=== PATIENT | female | born 1965 | race Caucasian/White ===

== ENCOUNTER 2021-07-11 14:24 | Outpatient (CLI) | payer BC, SELFPAY ==
--- NOTE | ~2021-07-11 | CT_ITS ---
EXAMINATION: CT sinus wo con DATE: 07/11/2021 14:48 INDICATION: Loss of smell, periorbital crash, rhinorrhea, congestion, cough. History of asthma. TECHNIQUE: Computed tomography (CT) of the paranasal sinuses was performed without contrast. Iterativ e reconstruction technique was employed. Exam dose: 239.31 mGy-cm total exam DLP. COMPARISON: 04/20/2012 skull FINDINGS: There is minimal leftward bowing of the nasal septum. There is opacified intralamellar cell of the right middle nasal turbinate. There is opacification of the maxillary ostium, infundibulum and ethmoid bulla bilaterally. There is prominent soft tissue thickening within both frontal sinuses, nearly opacifying the left fro ntal sinus. There is patchy prominent soft tissue opacification of the ethmoid air cells bilaterally. There is moderate right and mild left maxillary sinus mucoperiosteal thickening. There is minimal sof t tissue thickening of the sphenoid sinuses. The mastoid air cells are normally developed and aerated bilaterally. IMPRESSION: Opacification of both ostiomeatal units Prominent soft tissue opacification of frontal sinuses, left greater than right Prominent bilateral patchy opacification of ethmoid air cells Moderate right and mild left maxillary mucoperiosteal thickening Minimal bilateral sphenoid nuchal periosteal thickening Reviewed, dictated and finalized at [facility]. Reviewed, dictated and finalized at location [facility]. 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
== END 2021-07-11 14:25 ==
PROVIDERS: PCP Family Medicine; Visit Provider Family Medicine
DX: Z91.09 Other allergy status, other than to drugs and biological substances (principal)
CPT/HCPCS: 70486

== ENCOUNTER 2021-09-21 02:39 | Day surgery (SDC) | payer BC, SELFPAY ==
[2021-09-14 15:30] VITALS: BMI 49.5
--- NOTE | 2021-09-14 15:51 | PC.NURSE ---
Report to the Outpatient Waiting Room, entrance under the green pavilion located off [facility], at time 0730 on date 09/21/21. OR Time: 0930. - You and your visitor will be asked a series of questions to screen for COVID 19 for your protection. - A mask is required within the hospital. One visitor will be allowed to accompany the patient into the hospital. Patients visitor will be instructed to remain with patient at all times or leave the building. We will allow the visitor to come back to the postoperative area when patient is ready. Preoperative COVID Testing Requirements: No COVID Test needed if: (proof is required; if not received patient will have Rapid Test prior to entry) - Patient has received COVID Vaccine at least 14 days prior to procedure date or - Patient has positive COVID test result within last 90 days of surgery date. COVID Test needed if above criteria is not met Patients may have clear liquids (water, carbonated beverages, clear teas, apple juice) until 3 hours prior to surgery with a maximum of 20 ounces. - No food from midnight until time of surgery Take the following medications with a SIP of water the morning of surgery: INHALERS, LEVOTHYROXINE, LIOTHYRONINE Medications to discontinue per physician: BABY ASPIRIN Date to take last dose: PER DR. MOCTEZUMA Please no make-up, nail khmer, hairspray, perfume, deodorant, or body powder the day of surgery. No jewelry (including any body piercings) or valuables the day of surgery, leave them at home. Please take a shower or bath the night before, or the morning of, surgery with an antibacterial soap. Wear comfortable, loose fitting clothing. - Jewelry must be removed prior to entering the operating room. Rings and piercings that are not removed may be cut off. - The hospital will not accept responsibility for valuables. - Please leave all valuables, including medications, at home the day of surgery. If you are going home after surgery, a licensed equipment driver must drive you home. - NO public transportation without another adult. - We recommend that an adult stay with you for 24 hours following discharge. - We also recommend that you do not drive, make important decision, drink alcoholic beverages, or take any drugs that were not prescribed by your health care provider for at least 24 hours after your discharge time. Follow any additional instructions given to you from your surgeon. Telephone instructions given to CRISTOBAL BARRETT and asked if any additional questions and then verbalized understanding. Patient advised to call surgeon office or pre surgery nurse liaison [phone] if any additional questions.
--- NOTE | 2021-09-20 18:02 | PM.IMHP ---
H&P: HPI History of Present Illness Date/Time: 09/20/21 18:02 Chief Complaint: septal deviation turbinate hypertrophy nasal obstruction nasal congestion chronic sinusitis facial pain facial pressure postnasal drip Narrative: patient presents for planned surgical procedure no change in history no change in symptoms Review of Systems Constitutional: Constitutional: Denies fatigue, Denies fever(s) and Denies lethargy Eyes: Eyes: Denies blurry vision and Denies change in vision ENT: Reports as per HPI Cardiovascular: Cardiovascular: Denies chest pain Respiratory: Respiratory: Denies cough Endocrine: Endocrine: Denies fatigue Hematologic/Lymphatic: Hematologic/Lymphatic: Denies easy bleeding, Denies easy bruising and Denies lymphadenopathy Allergic/Immunologic: Allergic/Immunologic: Denies seasonal rhinorrhea [facility] Past Medical History Medical History Allergic asthma Chronic sinusitis GERD (gastroesophageal reflux disease) Hypothyroidism, unspecified Low vitamin D level Mixed hyperlipidemia Morbid (severe) obesity due to excess calories Surgical History Surgical History History of hysterectomy Family History Family History Father Hypertension Family history of elevated blood lipids Family history of diabetes mellitus in first degree relative Mother Hypertension Family history of elevated blood lipids Family history of diabetes mellitus in first degree relative Grandparent Family history of lung cancer Social History Social History Social History: Smoking status: Never smoker Second hand tobacco smoke exposure: No Alcohol intake: never Substance use: never Substance use type: does not use Living arrangements: with family Gender identity (if verbalized by the patient): Female Spiritual care concerns: No Meds Home Medications and Allergies Home Medications Medication Instructions Recorded Confirmed Type budesonide-formoterol HFA 160 2 puff INHALATION Q12H #10.2 g 06/27/20 09/14/21 Rx mcg-4.5 mcg/actuation aerosol inhaler albuterol sulfate 90 mcg/actuation 2 puff INHALATION Q4H PRN #8.5 g 03/19/21 09/14/21 Rx aerosol inhaler liothyronine 5 mcg tablet 5 mcg PO DAILY #90 tablet 03/19/21 09/14/21 Rx montelukast 10 mg tablet 10 mg PO QHS #90 tablet 03/19/21 09/14/21 Rx loratadine 10 mg tablet 10 mg PO DAILY 05/10/21 09/14/21 History benzonatate 200 mg capsule 200 mg PO TID PRN #30 cap 05/15/21 09/14/21 Rx budesonide 0.25 mg/2 mL suspension 0.25 mg IRRIGATION BID #60 ml 07/18/21 09/14/21 Rx for nebulization hydrochlorothiazide 25 mg tablet See Rx Instructions .ROUTE 07/18/21 09/14/21 Rx .COMPLEX #90 tablet omeprazole 20 mg capsule,delayed 20 mg PO DAILY #30 cap 08/04/21 09/14/21 Rx release nystatin 100,000 unit/mL oral 4 ml PO TID #473 ml 08/09/21 09/14/21 Rx suspension levothyroxine 150 mcg tablet 150 mcg PO DAILY #90 tablet 08/20/21 09/14/21 Rx famotidine 20 mg tablet 20 mg PO QHS #30 tablet 08/24/21 09/14/21 Rx aspirin [Baby Aspirin] 81 mg PO DAILY 09/14/21 09/14/21 History prednisone 10 mg tablet 10 mg PO DAILY #3 tablet 09/17/21 Rx Allergies Allergy/AdvReac Type Severity Reaction Status Date / Time Penicillins Allergy Unknown yeast Verified 09/14/21 15:25 infection, rash Exam Const: General: cooperative, healthy appearing, comfortable, well developed and alert HENMT: Head: normal to inspection, normocephalic and atraumatic Ears: hearing grossly normal bilaterally, external ears normal, TM's normal bilaterally and EAC's normal General nose exam: Normal external nose present, Normal nares present, No nasal polyps present, mucous membranes and turbinates abnormal, abnormal septum and
[2021-09-21] VITALS (9 sets, daily range): BP systolic 124–151; BP diastolic 73–93; PULSE 67–85; RESP 10–16; TEMP 36–36.6; O2SAT 93–99
--- NOTE | 2021-09-21 07:11 | WPDHPUPDATE1 ---
History and Physical Update Update Date/Time: 09/21/21 07:11 History and Physical has been reviewed, including an updated exam of the patient. There are NO changes in the patient's condition. Risks, benefits, and alternatives have been discussed and questions answered. Patient agrees to proceed with procedure.
[2021-09-21] MEDS: ACETAMINOPHEN 500 MG TABLET 1000 MG PO (07:50)
[2021-09-21] MEDS: LACTATED RINGERS 1,000 ML 30 ML IV CONT ×2 (08:10→11:21)
[2021-09-21 08:33] LABS: Anion Gap 7 mmol/L (8-16); Blood Urea Nitrogen 18 mg/dL (7-17); Calcium 8.8 mg/dL (8.4-10.2); Carbon Dioxide 29 mmol/L (22-30); Chloride 102 mmol/L (98-107); Estimated CRCL calculation 95 ml/min; Estimated Glomerular Filt Rate > 60; Glucose 104 mg/dL (65-110); Potassium 3.2 mmol/L (3.4-5.0); Sodium 138 mmol/L (137-145)
--- NOTE | 2021-09-21 08:56 | WPDANESEPPF ---
Anes - Initial Pre Proc Eval Procedure: Operation Date: 09/21/21 09:30 Proposed Procedures p Image Guided Bilateral Inferior Turbinectomy with Outfracture, Total Ethmoidectomy, Frontal Sinusotomy, Bilateral Maxillary Antrostomy, - Edvin Weber MD s Septoplasty - Edvin Weber MD Date/Time: 09/21/21 08:56 Surgeon: Edvin Weber MD Pre Op Diagnosis: chronic sinusitis Patient Data Age: 56 Gender: F Height: 1.65 m Weight: 136.4 kg Last Vital Signs Temp 36.6 C 09/21/21 07:22 Pulse 84 09/21/21 07:22 Resp 16 09/21/21 07:22 BP 142/79 H 09/21/21 07:22 Pulse Ox 98 09/21/21 07:22 Allergies Allergy/AdvReac Type Severity Reaction Status Date / Time Penicillins Allergy Mild yeast Verified 09/21/21 07:34 infection, rash Home Medications Medication Instructions Recorded Confirmed Type budesonide-formoterol HFA 160 2 puff INHALATION Q12H #10.2 g 06/27/20 09/21/21 Rx mcg-4.5 mcg/actuation aerosol inhaler albuterol sulfate 90 mcg/actuation 2 puff INHALATION Q4H PRN #8.5 g 03/19/21 09/21/21 Rx aerosol inhaler liothyronine 5 mcg tablet 5 mcg PO DAILY #90 tablet 03/19/21 09/21/21 Rx montelukast 10 mg tablet 10 mg PO QHS #90 tablet 03/19/21 09/21/21 Rx loratadine 10 mg tablet 10 mg PO DAILY 05/10/21 09/21/21 History benzonatate 200 mg capsule 200 mg PO TID PRN #30 cap 05/15/21 09/21/21 Rx hydrochlorothiazide 25 mg tablet See Rx Instructions .ROUTE 07/18/21 09/21/21 Rx .COMPLEX #90 tablet omeprazole 20 mg capsule,delayed 20 mg PO DAILY #30 cap 08/04/21 09/21/21 Rx release nystatin 100,000 unit/mL oral 4 ml PO TID #473 ml 08/09/21 09/21/21 Rx suspension levothyroxine 150 mcg tablet 150 mcg PO DAILY #90 tablet 08/20/21 09/21/21 Rx famotidine 20 mg tablet 20 mg PO QHS #30 tablet 08/24/21 09/21/21 Rx aspirin [Baby Aspirin] 81 mg PO DAILY 09/14/21 09/21/21 History prednisone 10 mg tablet 10 mg PO DAILY #3 tablet 09/17/21 09/21/21 Rx Laboratory Tests 09/21/21 07:30 Sodium 138 mmol/L mmol/L (137-145) Potassium 3.2 mmol/L L mmol/L (3.4-5.0) Chloride 102 mmol/L mmol/L (98-107) Carbon Dioxide 29 mmol/L mmol/L (22-30) Anion Gap 7 mmol/L L mmol/L (8-16) BUN 18 mg/dL H mg/dL (7-17) Creatinine 0.80 mg/dL mg/dL (0.7-1.0) Estim Creat Clear Calc 95 ml/min ml/min Estimated GFR > 60 (59 - ) Glucose 104 mg/dL mg/dL (65-110) Calcium 8.8 mg/dL mg/dL (8.4-10.2) Patient hx anesthesia problems: none Family hx anesthesia problems: none Results Review: All pre-operative results and documents have been reviewed as part of the pre-operative evaluation. [facility] Past Medical History Medical History Allergic asthma Chronic sinusitis GERD (gastroesophageal reflux disease) Hypothyroidism, unspecified Low vitamin D level Mixed hyperlipidemia Morbid (severe) obesity due to excess calories Surgical History Surgical History History of hysterectomy Family History Family History Father Hypertension Family history of elevated blood lipids Family history of diabetes mellitus in first degree relative Mother Hypertension Family history of elevated blood lipids Family history of diabetes mellitus in first degree relative Grandparent Family history of lung cancer Social History Social History Social History: Smoking status: Never smoker Second hand tobacco smoke exposure: No Alcohol intake: never Substance use: never Substance use type: does not use Living arrangements: with family Gender identity (if verbalized by the patient): Female Spiritual care concerns: No Anes - Eval Final PreProcedure Day of Procedure 09/21/21 08:56 Patient weight: morbidly ob
[2021-09-21] MEDS: ceFAZolin 3 GM/D5W 100 ML 100 ML IVPB (09:03)
[2021-09-21] MEDS: OXYMETAZOLINE HCL 0.05% NAS 15 ML BTL (*BKC) 1 SPRAY NASAL (09:19)
[2021-09-21] MEDS: MUPIROCIN 2% OINT 22 GM TUBE 1 APPLIC TOPICAL (10:54)
[2021-09-21] MEDS: oxyCODONE HCL (*CRX) 5 MG TAB IR PO (12:40)
--- NOTE | 2021-09-21 15:10 | W.PM.PROC2 ---
Procedure Note - Detailed Date of Procedure 09/21/21 Pre-op Diagnosis chronic sinusitis, nasal polyps, septal deviation, turbinate hypertrophy, nasal obstruction Post-op Diagnosis Same Procedure Performed 1. Endoscopic image guided bilateral maxillary antrostomies 2. Endoscopic image guided total ethmoidectomies 3. Endoscopic image guided frontal sinusotomies 4. Middle turbinectomies endoscopic image guided 5. Turbinate reductions submucosal with outfracture 6. Endoscopic assisted septoplasty Surgeon Edvin Weber MD Anesthesia General Indications See above Findings Polypoid scar tissue bilateral middle turbinates necessitating remove diseased polypoid mucosa in all the aforementioned sinuses left septal deviation blocking the sinus left middle meatus and left nasal passage, turbinate hypertrophy Description of Procedure Patient identified consent verified. Patient brought operating room. Time-out performed. General anesthesia induced endotracheal tube secured taped to the left lower lip. Image guidance initiated set up confirmed. Second time-out performed. Afrin-soaked pledgets placed for 5 minutes then removed. Patient draped and draped for the aforementioned procedures. 0 degree endoscope utilized as well as image guidance 10 cc 1% lidocaine 1 100,000 parts epinephrine JAK2 the bilateral inferior turbinates and submucoperichondrial in the septum. A 15 blade utilized to perform Leonid incision left septum mucoperichondrial flap elevated with 7 Persian suction. Osteotome utilized crust septum right flap elevated small perforation left-sided linear from tear not an actual perforation no concomitant perforation on the right. Deviated septum a combination Arlette forceps osteotome Andrea Resendizton forceps. Closed with 2 interrupted 5 0 fast gut sutures. Turbinates reduced bilaterally with a 2 mm microdebrider blade in the submucosal submucosal plane outfractured with [place] elevator. Maxillary antrostomies performed with double ball tip probe image guidance straight through cut micro debrider and backbiter polypoid edema found bilaterally. Total ethmoid ethmoidectomies performed with Kerrison micro debrider straight through cut. Great care was taken to not injure the orbit skull base septum and or septum. Anterior ethmoidal arteries were not injured. Hemostasis achieved using warm water irrigations as well as Bovie suction electrocautery specially at the stumps of the middle turbinates which were removed prior using straight through cut and Bovie suction electrocautery setting of 15. No bleeding was noted and the decision made to perform frontal sinusotomies. 70 degree scope utilized as well as image guided 70 degree suction and frontal seeker difficulty cannulating both the right is very narrow unable to widen other than with frontal seeker and Hosemann the left was appropriately widened in should remain patent. There were no complications. Langley splints placed and sutured anteriorly using 3-0 interrupted nylon suture. Bleeding was minimal hemostasis excellent. Care the patient determine Anesthesiology. I performed all dictated portions. No complications that were media. Estimated Blood Loss -75.0 Drains No Packing No Pathology None sent Complications No immediate complications Condition Stable Disposition PACU
== END 2021-09-21 13:40 | disposition home or self-care (01) ==
PROVIDERS: Anesthesiology; PCP Family Medicine; Visit Provider Otolaryngology
PROC: (CPT 31256; principal; 2021-09-21 09:30)
PROC: (CPT 30520; 2021-09-21 09:30)
DX: J32.8 Other chronic sinusitis (principal); J33.9 Nasal polyp, unspecified; J34.2 Deviated nasal septum; J34.3 Hypertrophy of nasal turbinates; E03.9 Hypothyroidism, unspecified; R51.9 Headache, unspecified; R44.8 Other symptoms and signs involving general sensations and perceptions; R09.82 Postnasal drip; Z79.51 Long term (current) use of inhaled steroids; Z79.82 Long term (current) use of aspirin; K21.9 Gastro-esophageal reflux disease without esophagitis; E55.9 Vitamin D deficiency, unspecified; E78.2 Mixed hyperlipidemia; E66.01 Morbid (severe) obesity due to excess calories; Z68.43 Body mass index [BMI] 50.0-59.9, adult
CPT/HCPCS: 31256; 30999; 61782; 31253; 30520; 30140; 36415; 80048; A9270; J0330; J0690; J1100; J1170; J2250; J2405; J2704; J3010; J7120

== ENCOUNTER 2023-08-13 15:26 | Outpatient (CLI) | payer OTHER, SELFPAY ==
--- NOTE | ~2023-08-13 | US_ITS ---
EXAMINATION: US thyroid DATE: 08/13/2023 16:01 INDICATION: Nontoxic goiter, unspecified. TECHNIQUE: Multiple ultrasound images of the thyroid were obtained. COMPARISON: None. FINDINGS: The right thyroid lobe measures 3.8 x 1.8 x 1.4 cm. The left thyroid lobe measures 3.7 x 1.4 x 1.4 c m. The thyroid is diffusely heterogeneous and hypoechoic. Vascularity is normal. No discrete nodule. IMPRESSION: 1. Heterogeneous thyroid, likely chronic lymphocytic (Charlene) thyroiditis. 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
== END 2023-08-13 15:27 | disposition home or self-care (01) ==
LOC: ANHIMG 15:27
PROVIDERS: PCP Family Medicine; Visit Provider Physician Assistant
DX: E04.9 Nontoxic goiter, unspecified (principal)
CPT/HCPCS: 76536

== ENCOUNTER 2024-03-31 01:51 | Day surgery (SDC) | payer OTHER, SELFPAY ==
[2024-03-12 10:02] VITALS: BMI 50.1
[2024-03-31 10:15] VITALS: BP 146/78; PULSE 69; RESP 18; TEMP 37.3; O2SAT 98; BMI 50.8
[2024-03-31] MEDS: LACTATED RINGERS 1,000 ML 150 ML IV CONT (10:53)
--- NOTE | 2024-03-31 10:58 | WPDANESEPPF ---
Anes - Initial Pre Proc Eval Procedure: Operation Date: 03/31/24 11:30 Proposed Procedures p Esophagogastroduodenoscopy - Guido Phelan MD Date/Time: 03/31/24 10:58 Surgeon: Guido Phelan MD Pre Op Diagnosis: Dysphagia, food in larynx, Patient Data Age: 58 Gender: F Height: 1.65 m Weight: 138.7 kg Last Vital Signs Temp 99.1 F 03/31/24 10:15 Pulse 69 03/31/24 10:15 Resp 18 03/31/24 10:15 BP 146/78 H 03/31/24 10:15 Pulse Ox 98 03/31/24 10:15 O2 Del Method Room Air 03/31/24 10:15 Allergies Allergy/AdvReac Type Severity Reaction Status Date / Time Penicillins Allergy Mild yeast Verified 03/31/24 10:28 infection, rash Home Medications Medication Instructions Recorded Confirmed Type budesonide-formoterol HFA 160 2 puff inhalation Q12H #10.2 grams 06/27/20 03/31/24 Rx mcg-4.5 mcg/actuation aerosol inhaler (Symbicort) albuterol sulfate 90 mcg/actuation 2 puff inhalation Q4H PRN 03/19/21 03/31/24 Rx aerosol inhaler (Ventolin HFA) shortness of breath or wheezing #8.5 grams aspirin 81 mg chewable tablet 81 mg PO DAILY 09/14/21 03/31/24 History montelukast 10 mg tablet See Rx Instructions .Route 12/19/23 03/31/24 Rx .COMPLEX #90 tabs hydrochlorothiazide 25 mg tablet See Rx Instructions .Route 01/06/24 03/31/24 Rx .COMPLEX #90 tabs omeprazole 20 mg capsule,delayed See Rx Instructions .Route 01/21/24 03/31/24 Rx release .COMPLEX #90 caps levothyroxine 150 mcg tablet See Rx Instructions .Route 01/26/24 03/31/24 Rx .COMPLEX #90 tabs famotidine 20 mg tablet 20 mg PO HS 03/12/24 03/31/24 History fluticasone propionate 93 1 spray intranasal Q12H PRN Sinuses 03/12/24 03/31/24 History mcg/actuation breath activated aerosol (Xhance) liothyronine 5 mcg tablet See Rx Instructions .Route 03/29/24 03/31/24 Rx .COMPLEX #90 tabs Patient hx anesthesia problems: none Family hx anesthesia problems: none Results Review: All pre-operative results and documents have been reviewed as part of the pre-operative evaluation. [facility] Past Medical History Medical History Allergic asthma Chronic sinusitis GERD (gastroesophageal reflux disease) Hypothyroidism, unspecified Low vitamin D level Mixed hyperlipidemia Morbid (severe) obesity due to excess calories Surgical History Surgical History History of hysterectomy Family History Family History Father Hypertension Family history of elevated blood lipids Family history of diabetes mellitus in first degree relative Mother Hypertension Family history of elevated blood lipids Family history of diabetes mellitus in first degree relative Grandparent Family history of lung cancer Social History Social History Social History: Smoking status: Never smoker Second hand tobacco smoke exposure: No Alcohol intake: never Substance use: never Substance use type: does not use Do You Feel Safe in your Home?: Yes Lack of Transportation: No Lack of Food: Never True Current Housing: I Have Housing Concerned About Future Housing: No Difficulty Paying Gas/Electric Bills: No Difficulty Paying for Meds: No Currently Unemployed: YES Education: Trade/Vocational Certificate Difficulty w/ Childcare or Family Care: No Living arrangements: with family 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
--- NOTE | 2024-03-31 11:24 | PM.HPGS ---
History of Present Illness History of Present Illness Consent: Risks, benefits, and alternatives have been discussed and questions answered. Patient agrees to proceed with procedure. Chief complaint: Dysphagia, food in larynx, Narrative: Michelle Munoz is a 58 year old female here for first EGD, h/o GERD on famotidine and omeprazole, sensation of choking/cough after eating Review of Systems Review of Systems: All systems reviewed & are unremarkable except as noted in HPI and below PMFSH Past Medical History Medical History Allergic asthma Chronic sinusitis GERD (gastroesophageal reflux disease) Hypothyroidism, unspecified Low vitamin D level Mixed hyperlipidemia Morbid (severe) obesity due to excess calories Surgical History Surgical History History of hysterectomy Family History Family History Father Hypertension Family history of elevated blood lipids Family history of diabetes mellitus in first degree relative Mother Hypertension Family history of elevated blood lipids Family history of diabetes mellitus in first degree relative Grandparent Family history of lung cancer Social History Social History Social History: Smoking status: Never smoker Second hand tobacco smoke exposure: No Alcohol intake: never Substance use: never Substance use type: does not use Do You Feel Safe in your Home?: Yes Lack of Transportation: No Lack of Food: Never True Current Housing: I Have Housing Concerned About Future Housing: No Difficulty Paying Gas/Electric Bills: No Difficulty Paying for Meds: No Currently Unemployed: YES Education: Trade/Vocational Certificate Difficulty w/ Childcare or Family Care: No Living arrangements: with family 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 Gender identity (if verbalized by the patient): Female Sexual Orientation (if Verbalized by the Patient): Straight or Heterosexual Spiritual care concerns: No Meds Home Medications and Allergies Home Medications Medication Instructions Recorded Confirmed Type budesonide-formoterol HFA 160 2 puff inhalation Q12H #10.2 grams 06/27/20 03/31/24 Rx mcg-4.5 mcg/actuation aerosol inhaler (Symbicort) albuterol sulfate 90 mcg/actuation 2 puff inhalation Q4H PRN 03/19/21 03/31/24 Rx aerosol inhaler (Ventolin HFA) shortness of breath or wheezing #8.5 grams aspirin 81 mg chewable tablet 81 mg PO DAILY 09/14/21 03/31/24 History montelukast 10 mg tablet See Rx Instructions .Route 12/19/23 03/31/24 Rx .COMPLEX #90 tabs hydrochlorothiazide 25 mg tablet See Rx Instructions .Route 01/06/24 03/31/24 Rx .COMPLEX #90 tabs omeprazole 20 mg capsule,delayed See Rx Instructions .Route 01/21/24 03/31/24 Rx release .COMPLEX #90 caps levothyroxine 150 mcg tablet See Rx Instructions .Route 01/26/24 03/31/24 Rx .COMPLEX #90 tabs famotidine 20 mg tablet 20 mg PO HS 03/12/24 03/31/24 History fluticasone propionate 93 1 spray intranasal Q12H PRN Sinuses 03/12/24 03/31/24 History mcg/actuation breath activated aerosol (Xhance) liothyronine 5 mcg tablet See Rx Instructions .Route 03/29/24 03/31/24 Rx .COMPLEX #90 tabs Allergies Allergy/AdvReac Type Severity Reaction Status Date / Time Penicillins Allergy Mild yeast Verified 03/31/24 10:28 infection, rash Vital Signs Vital Signs - 24 hr 03/31/24 10:15 Temperature 99.1 F Pulse Rate 69 Respiratory Rate 18 Blood Pressure 146/78 H Pulse Oximetry 98 Oxygen Delivery Room Air Exam Const: General: comfortable and no acute distress HENMT: Face/Nose/Sinus: Normal nares present Eyes: General: appearance normal, both eyes and all rel
[2024-03-31 11:37] VITALS: BP 104/65; PULSE 63; RESP 18; O2SAT 98
[2024-03-31 11:47] VITALS: BP 114/56; PULSE 66; RESP 14; O2SAT 100
[2024-03-31 11:57] VITALS: BP 110/70; PULSE 62; RESP 15; O2SAT 100
== END 2024-03-31 12:09 | disposition home or self-care (01) ==
PROVIDERS: PCP Family Medicine; Referring Provider Physician Assistant; Visit Provider Internal Medicine Gastroenterology
PROC: 0DJ08ZZ Inspection of Upper Intestinal Tract, Via Natural or Artificial Opening Endoscopic (ICD-10-PCS; CPT 43235; principal; 2024-03-31 11:30)
DX: K29.70 Gastritis, unspecified, without bleeding (principal); K21.9 Gastro-esophageal reflux disease without esophagitis; R13.10 Dysphagia, unspecified; Z79.51 Long term (current) use of inhaled steroids; Z79.82 Long term (current) use of aspirin; E78.2 Mixed hyperlipidemia; E55.9 Vitamin D deficiency, unspecified; E03.9 Hypothyroidism, unspecified; J45.909 Unspecified asthma, uncomplicated; E66.01 Morbid (severe) obesity due to excess calories; Z68.43 Body mass index [BMI] 50.0-59.9, adult
CPT/HCPCS: 43239; 88305; J2001; J2704; J7120

== ENCOUNTER 2024-11-02 15:44 | Outpatient (CLI) | payer OTHER, SELFPAY ==
--- NOTE | ~2024-11-02 | XR_ITS ---
CHEST RADIOGRAPH, PA AND LATERAL CLINICAL HISTORY: R06.00 - Dyspnea, unspecified . COMPARISON: None available TECHNIQUE: PA and lateral views of the chest. FINDINGS The cardiomediastinal silhouette is unremarkable. The lungs are clear. Visualized osseous structures and soft tissues are unremarkable. IMPRESSION: No focal infiltrate or effusion. Reviewed, dictated and finalized at location A.
--- OUTSIDE RECORDS SUMMARY | 2024-11-02 16:40 | XMS_ITS | Referral Summary ---
Author Organization [address] Address [address] [place] [phone] Care Team Providers Care Casting And Curing Operator Name Role Phone Rowena Moser MD Primary Care Provider Allergies Active Allergy Reactions Criticality Noted Date Comments Penicillins Other (See comments) Low Gets bad yeast infections Medications levothyroxine (SYNTHROID, LEVOTHROID) 100 mcg tablet Active budesonide-form oterol (SYMBICORT) 160-4.5 mcg/actuation inhaler Rinse mouth with water after use to reduce aftertaste and incidence of candidiasis. Do not swallow. Active triamterene-hyd roCHLOROthiazid e (MAXZIDE,DYAZID E) 75-50 mg per tablet Active benzonatate (TESSALON) 100 mg capsuleIndicati ons:Cough Take 100 mg by mouth 3 (three) times a day as needed for cough. Active Active Problems No known active problems Social History Tobacco Use Types Packs/Day Years Used Date Smoking Tobacco: Never Smokeless Tobacco: Never Comments No Sex and Gender Information Value Date Recorded Sex Assigned at Not on file Legal Sex Female 3:05 PM TECHNICAL STAFF ASSISTANT Gender Identity Not on file Sexual Orientation Not on file Last Filed Vital Signs Vital Sign Reading Time Taken Comments Blood Pressure 120/72 12/22/2017 5:20 PM CDT Pulse 80 12/22/2017 5:20 PM CDT Temperature 37.2 C (98.9 F) 12/22/2017 5:20 PM CDT Respiratory Rate 16 12/22/2017 5:20 PM CDT Oxygen Saturation 96% 12/22/2017 5:20 PM CDT Inhaled Oxygen Concentration - - Weight 113.4 kg (250 lb) 12/22/2017 5:20 PM CDT Height 165.1 cm (5' 5 ) 09/23/2022 8:05 AM TECHNICAL STAFF ASSISTANT Body Mass Index 41.6 12/22/2017 5:20 PM CDT Plan of Treatment Not on file Procedures Procedure Name Priority Date/Time Associated Diagnosis Comments SCREENING MAMMOGRAM BILATERAL W FAMILIA Schedule Routine, Read Routine (OP Routine) 09/23/2022 8:13 AM TECHNICAL STAFF ASSISTANT Screening mammogram, encounter for from Last 3 Months or Most Recently Relevant to Health Maintenance Results * Screening Mammogram Bilateral W Familia (09/23/2022 8:13 AM TECHNICAL STAFF ASSISTANT) Anatomical Region Laterality Modality Breast Bilateral Mammography 09/27/2022 1:39 PM TECHNICAL STAFF ASSISTANT Impressions 09/27/2022 1:39 PM TECHNICAL STAFF ASSISTANT There is no mammographic evidence of malignancy. A 1 year screening mammogram is recommended. BI-RADS: 1 - Negative. The patient has been or will be contacted. The patient will be entered into a reminder system with a target due date of 1 year for her next mammogram. Electronically signed by: MALKA Wooten 09/27/2022 1:39 PM TECHNICAL STAFF ASSISTANT EXAMINATION: SCREENING MAMMOGRAM BILATERAL W FAMILIA ORDERING HEALTHCARE PROVIDER: JESSE HOBSON HISTORY: Routine screening mammography. COMPARISON: 10/23/2014, 10/28/2014. TECHNIQUE: CC and MLO views of both breasts were obtained with digital technique using digital breast tomosynthesis with C view. Computer aided detection was utilized. FINDINGS: DENSITY: The breasts have scattered areas of fibroglandular density. BREASTS: There is no new suspicious finding in either breast on mammogram. us Jesse Hobson DISABILITY MANAGER IMG MAMMO PROCEDURES Final Result from Last 3 Months or Most Recently Relevant to Health Maintenance [place] [address] [id number] [place] [address] [id number] Care Teams Casting And Curing Operator Relationship Specialty Start Date End Date Rowena Moser MD [address] [facility] [address] [place] [address] PCP - General Family Medicine 05/26/17
--- OUTSIDE RECORDS SUMMARY | 2024-11-02 16:40 | XMS_ITS ---
Author Organization [facility] Address [address] [place] [phone] Phone Care Team Providers Care Tufting Machine Operator Single Needle Name Role Phone Unavailable Unavailable Unavailable Reason for Referral Date Encounter Description Provider Reason for Referral 09/23/14 ANNUAL BUCKLE INSPECTOR EXAM EVARISTO DOOLEY WHNP-BC Req uest Consultation By Specialist Problems Includes: Active, inactive, and resolved Problems All Visits Onset Date Resolved Date Provider Condition S tatus Asthma 09/22/2013 EVARISTO DOOLEY WHNP-BC Act chuck Last Documented On 4 9:16AM ; [facility] Postsurgical State 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 Hewitt Endometrial Ablation 09/05/2010 EVARISTO DOOLEY W HNP-BC Active Last Documented On 1 12:32PM ; [facility] Note: [facility]. Hewitt 08-05-2007 Hypothyroidism 09/05/2010 EVARISTO DOOLEY WHNP-BC Active Last Documented On 1 9:06AM ; [facility] Oophorectomy - Unilateral (Removal of One Ovary) 09/05/2010 EVARISTO DOOLEY WHNP-BC Act chuck Last Documented On 09/05/2010 7:15AM ; [facility] Note: S/P left oophorectomy Plan of Treatment Findings Encounter Date Ordered Clinical summary pro vided to patient ANNUAL BUCKLE INSPECTOR EXAM with EVARISTO DOOLEY WHNP-BC 09/23/2014 Last Documented On 5 9:31AM ; [facility] Ordered follow-up visit 1 ye ar or as needed ANNUAL BUCKLE INSPECTOR EXAM with EVARISTO DOOLEY NP-BC 09/23/2014 Last Documented On 5 9:31AM ; [facility] Ordered Transition in care, clinical summary provided ANNUAL BUCKLE INSPECTOR EXAM with EVARISTO DOOLEY WHNP-BC 09/23/2014 Last Documented On 5 9:31AM ; [facility] Ordered Clinical summary pro vided to patient ANNUAL BUCKLE INSPECTOR EXAM with EVARISTO DOOLEY NP-BC 09/22/2013 Last Documented On 4 9:27AM ; [facility] Ordered follow-up visit 1 ye ar or as needed ANNUAL BUCKLE INSPECTOR EXAM with EVARISTO DOOLEY NP-BC 09/22/2013 Last Documented On 4 9:27AM ; [facility] Ordered follow-up visit 1 ye ar or as needed ANNUAL BUCKLE INSPECTOR EXAM with EVARISTO DOOLEY NP-BC 09/09/2012 Last Documented On 3 11:07AM ; [facility] Ordered follow-up visit 1 ye ar or as needed BANDOLEER PACKER EXAM with EVARISTO DOOLEY NP-BC 09/06/2011 Last Documented On 2 9:42AM ; [facility] Ordered follow-up visit 1 ye ar or as needed BANDOLEER PACKER EXAM with EVARISTO DOOLEY NP-BC 09/05/2010 Last Documented On 1 12:33PM ; [facility] Referrals To Diagnosis Director Of Sustainability COLBY CADENA MD SCREEN MAL NE OP-RECTUM Last Documented On 5 2:51PM ; [facility] Instructions to patient Instructions for patient : B reast Self Exam discussed Last Documented On 5 9:05AM ; [facility] Lose weight Last Documented On 5 9:06AM ; [facility] Colonoscopy Handout given to patient Last Documented On 5 9:06AM ; [facility] Instructions for patient : B reast Self Exam discussed Last Documented On 4 9:04AM ; [facility] Lose weight Last Documented On 4 9:05AM ; [facility] Colonoscopy Handout given to patient Last Documented On 4 9:05AM ; [facility] Instructions for patient : B reast Self Exam discussed Last Documented On 3 10:48AM ; [facility] Lose weight Last Documented On 3 10:48AM ; [facility] Instructions for patient : B reast Self Exam discussed Last Documented On 2 9:21AM ; [facility] Lose weight Last Documented On 2 9:22AM ; [facility] Instructed to call if excess chuck bleeding or abdominal/pelvic pain Last Documented On 1 2:52PM ; [facility] Patient may take Motrin OTC PRN as directed Last Documented On 1 2:52PM ; [facility] Instructions for patient : B reast Self Exam discussed Last Documented On 1 9:05AM ; [facility] Lose weight Last Documented On 1 9:05AM ; [facility] Education and Decision Aids were provided during visit for: Patient Education: Daily giulia cium and vitamin D Last Documented On 5 9:05AM ; [facility] Patient Education: weight be aring exercise Last Documented On 5 9:05AM ; [facility] Patient Education: Daily giulia cium and vitamin D Last Documented On 4 9:04AM ; [facility] Patient Education: weight be aring exercise Last Documented On 4 9:04AM ; [facility] Patient Education: Daily giulia cium and vitamin D Last Documented On 3 10:48AM ; [facility] Patient Education: weight be aring exercise Last Documented On 3 10:48AM ; [facility] Patient Education: Daily giulia cium and vitamin D Last Documented On 2 9:21AM ; [facility] Patient Education: weight be aring exercise Last Documented On 2 9:21AM ; [facility] INFORMED CONSENT DISCUSSION: Endometrial biopsy was discussed in detail including discomfort, insufficient specimen with need to repeat test, and rare incidence of uterine perforation. Patient expressed understanding of the above and consented to the procedure Last Documented On 1 2:52PM ; [facility] Patient Education: Daily giulia cium and vitamin D Last Documented On 1 9:05AM ; [facility] Patient Education: weight be aring exercise Last Documented On 1 9:05AM ; [facility] Assessments Includes: Assessments for all patient encounters Findings Encounter Date NORMAL FEMALE EXAM ANNUAL BUCKLE INSPECTOR EXAM with EVARISTO DOOLEY NP-BC 09/23/2014 Last Documented On 5 9:31AM ; [facility] Screening Malig. Neoplasm Rectum ANNUAL BUCKLE INSPECTOR EXAM with EVARISTOJINNY DOOLEY NP-BC 09/23/2014 Last Documented On 5 9:31AM ; [facility] NORMAL FEMALE EXAM ANNUAL BUCKLE INSPECTOR EXAM with EVARISTOJINNY DOOLEY NP-BC 09/22/2013 Last Documented On 4 9:27AM ; [facility] Screening Malig. Neoplasm Rectum ANNUAL BUCKLE INSPECTOR EXAM with EVARISTO DOOLEY NP-BC 09/22/2013 Last Documented On 4 9:27AM ; [facility] NORMAL FEMALE EXAM ANNUAL BUCKLE INSPECTOR EXAM with EAVRISTOJINNY DOOLEY NP-BC 09/09/2012 Last Documented On 3 11:07AM ; [facility] Screening Malig. Neoplasm Rectum ANNUAL BUCKLE INSPECTOR EXAM with EVARISTO DOOLEY NP-BC 09/09/2012 Last Documented On 3 11:07AM ; [facility] NORMAL FEMALE EXAM BANDOLEER PACKER EXAM with EVARISTO DOOLEY W P-BC 09/06/2011 Last Documented On 2 9:42AM ; [facility] Screening Malig. Neoplasm Rectum BANDOLEER PACKER EXAM with Jayla Bullock DOOLEY NP-BC 09/06/2011 Last Documented On 2 9:42AM ; [facility] POST OP VISIT POST OP VISIT with SERGEY HEWITT MD 01/22/2011 Last Documented On 1 3:49PM ; [facility] POST OP VISIT POST OP VISIT with SERGEY HEWITT MD 12/24/2010 Last Documented On 1 2:06PM ; [facility] Female pelvic pain CONSULTATION with SERGEY ENRIQUEZ MD 11/13/2010 Last Documented On 1 1:47PM ; [facility] Leiomyoma of the uterus CONSULTATION with SERGEY HEWITT MD 11/13/2010 Last Documented On 1 1:47PM ; [facility] Ovarian cyst CONSULTATION with SERGEY HEWITT MD 11/13/2010 Last Documented On 1 1:47PM ; [facility] NORMAL FEMALE EXAM BANDOLEER PACKER EXAM with EVARISTO Kobe Simmons [facility] 09/05/2010 Last Documented On 1 12:33PM ; [facility] Screening Malig. Neoplasm Rectum BANDOLEER PACKER EXAM with Jayla AGUERO Kobe [facility] 09/05/2010 Last Documented On 1 12:33PM ; [facility] Instructions Includes: Instructions for all patient encounters Instructions to patient Instructions for patient : B reast Self Exam discussed Last Documented On 5 9:05AM ; [facility] Lose weight Last Documented On 5 9:06AM ; [facility] Colonoscopy Handout given to patient Last Documented On 5 9:06AM ; [facility] Instructions for patient : B reast Self Exam discussed Last Documented On 4 9:04AM ; [facility] Lose weight Last Documented On 4 9:05AM ; [facility] Colonoscopy Handout given to patient Last Documented On 4 9:05AM ; [facility] Instructions for patient : B reast Self Exam discussed Last Documented On 3 10:48AM ; [facility] Lose weight Last Documented On 3 10:48AM ; [facility] Instructions for patient : B reast Self Exam discussed Last Documented On 2 9:21AM ; [facility] Lose weight Last Documented On 2 9:22AM ; [facility] Instructed to call if excess chuck bleeding or abdominal/pelvic pain Last Documented On 1 2:52PM ; [facility] Patient may take Motrin OTC PRN as directed Last Documented On 1 2:52PM ; [facility] Instructions for patient : B reast Self Exam discussed Last Documented On 1 9:05AM ; [facility] Lose weight Last Documented On 1 9:05AM ; [facility] Education and Decision Aids were provided during visit for: Patient Education: Daily giulia cium and vitamin D Last Documented On 5 9:05AM ; [facility] Patient Education: weight be aring exercise Last Documented On 5 9:05AM ; [facility] Patient Education: Daily giulia cium and vitamin D Last Documented On 4 9:04AM ; [facility] Patient Education: weight be aring exercise Last Documented On 4 9:04AM ; [facility] Patient Education: Daily giulia cium and vitamin D Last Documented On 3 10:48AM ; [facility] Patient Education: weight be aring exercise Last Documented On 3 10:48AM ; [facility] Patient Education: Daily giulia cium and vitamin D Last Documented On 2 9:21AM ; [facility] Patient Education: weight be aring exercise Last Documented On 2 9:21AM ; [facility] INFORMED CONSENT DISCUSSION: Endometrial biopsy was discussed in detail including discomfort, insufficient specimen with need to repeat test, and rare incidence of uterine perforation. Patient expressed understanding of the above and consented to the procedure Last Documented On 1 2:52PM ; [facility] Patient Education: Daily giulia cium and vitamin D Last Documented On 1 9:05AM ; [facility] Patient Education: weight be aring exercise Last Documented On 1 9:05AM ; [facility] Medical Equipment - Implanted Devices Includes: Current and historical Devices No Medical Equipment Recorded Medications Includes: Current and historical Medications Current Medications (continue as prescribed) Albutein 5% IV SOLN 09/23/2014 Provider: Diagnosis: Last Documented On 09/23/2014 9:16AM By CARISA EDOUARD ; [facility] Levothyroxine Sodium 125 MCG OR TABS 09/22/2013 Prov ider: Diagnosis: Last Documented On 09/22/2013 9:13AM By CARISA EDOUARD ; [facility] Potassium Citrate ER 10 MEQ (1080 MG) OR TBCR 09/23/19 14 Provider: Diagnosis: Last Documented On 09/22/2013 9:14AM By CARISA EDOUARD ; [facility] /4.5mg 160/4.5mg OR INHA 09/22/2013 Prov ider: Diagnosis: Last Documented On 09/22/2013 9:14AM By CARISA EDOUARD ; [facility] hydroCHLOROthiazide 25 MG TABS 09/09/2012 Provider: Diagnosis: Last Documented On 09/09/2012 10:55AM By RUBY EDOUARD ; [facility] Past Medications on file Advair HFA 230-21 MCG/ACT IN AERO 09/22/2013 - 015 Provider: Diagnosis: Last Documented On 09/23/2014 9:16AM By CARISA EDOUARD ; [facility] Synthroid 112 MCG OR TABS 09/05/2010 - 09/22/2013 Prov ider: Diagnosis: Last Documented On 09/22/2013 9:13AM By CARISA EDOUARD ; [facility] Ibuprofen 800 MG OR TABS 09/05/2010 - 10/05/2010 Provi faye: EVARISTO [facility]OO[facility] Diagnosis: for dysmenorrhea Last Documented On 1 9:25AM By EVARISTO DOOLEY GUSTABO- ; [facility] Medications Administered Includes: Administered Medications in patient's chart No Administered Medications Recorded Results Includes: Results from 11/03/2023 through 11/02/2024 No Results Recorded For Specified Dates History of Present Illness History of Present Illness not supported for this document type No History of Present Illness Recorded Social History Description Last Updated The racial background 09/23/2014 Last Documented On 5 9:31AM ; [facility] The racial background is 09/23 Last Documented On 5 9:31AM ; [facility] Rastafarian: Caodaism 09/22/2013 Last Documented On 4 9:27AM ; [facility] Temple affiliation 09/22/2013 Last Documented On 4 9:27AM ; [facility] Smoking Status Unknown Procedures and Surgical History Surgical History Last Updated History of total abdominal hysterectomy 09/22/2013 Last Documented On 4 9:27AM ; [facility] History of hysterectomy 09/22/2013 Last Documented On 4 9:27AM ; [facility] History of tubal ligation 09/22/2013 Last Documented On 4 9:27AM ; [facility] Surgical / procedural history L oopherec janny ~Novasure 09/22/2013 Last Documented On 4 9:27AM ; [facility] Medical History Includes: Medical History in patient's chart Description Last Updated History of a DEXA of the lat eral lumbar spine was performed never had one 09/23/2014 Last Documented On 5 9:31AM ; [facility] History of complete colonoscopy never salguero d one 09/23/2014 Last Documented On 5 9:31AM ; [facility] Sexually active 09/23/2014 Last Documented On 5 9:31AM ; [facility] 3 living children 09/22/2013 Last Documented On 4 9:27AM ; [facility] Asthma 09/22/2013 Last Documented On 4 9:27AM ; [facility] 3 09/22/2013 Last Documented On 4 9:27AM ; [facility] History of hypothyroidism 09/22/2013 Last Documented On 4 9:27AM ; [facility] LMP: 12/10/2010 09/22/2013 Last Documented On 4 9:27AM ; [facility] Para 3 09/22/2013 Last Documented On 4 9:27AM ; [facility] Status post tubal ligation 09/22/2013 Last Documented On 4 9:27AM ; [facility] Vaginal delivery 09/22/2013 Last Documented On 4 9:27AM ; [facility] Family History Includes: Family History in patient's chart Description Last Updated Family history of heart disease pgm,mgm, mother 09/23/2014 Last Documented On 5 9:31AM ; [facility] Spouse name: Sajan 09/22/2013 Last Documented On 4 9:27AM ; [facility] Family history of diabetes mellitus pare nts 09/22/2013 Last Documented On 4 9:27AM ; [facility] Family history of hypercholesterolemia f ather 09/22/2013 Last Documented On 4 9:27AM ; [facility] Family history unchanged 09/22/2013 Last Documented On 4 9:27AM ; [facility] Family history of malignant neoplasm of the large intestine Paternal uncle 09/06/2011 Last Documented On 2 9:42AM ; [facility] Family history of uterine cancer materna l aunt 09/06/2011 Last Documented On 2 9:42AM ; [facility] Family history of hypertension PGM, PGF, father 09/05/2010 Last Documented On 1 12:33PM ; [facility] Family history of Cancer 08/07/2009 Last Documented On 0 7:56AM ; [facility] Family history of Diabetes 08/07/2009 Last Documented On 0 7:56AM ; [facility] Family medical history of High Cholester ol 08/07/2009 Last Documented On 0 7:56AM ; [facility] Review of Systems Review of Systems not supported for this document type No Review of Systems Recorded Mental Status No Mental Status Recorded Functional Status No Functional Status Recorded Physical Exam Physical Exam not supported for this document type No Physical Exam Recorded Allergies Includes: Active, inactive, and resolved Allergies Substance Type Reaction Onset Date Resolved Date Statu s Penicillins Allergy 08/07/2009 Active Last Documented On 5 9:15AM ; [facility] Clinical Notes Includes: Signed Clinical Notes starting from 08/09/2022 No Clinical Notes Recorded
--- OUTSIDE RECORDS SUMMARY | 2024-11-02 16:40 | XMS_ITS | Clinical Summary ---
Author Organization [address] Address [address] [place] [id number] Care Team Providers Care Dietary Supervisor Name Role Phone Rowena Moser MD Primary [...] Active Active Problems No known active problems Surgical History Surgery Date Site/Laterality Comments TOTAL ABDOMINAL HYSTERECTOMY Hysterectomy, total Medical History Medical History Date Comments Asthma Asthma; Comments : APO 06/23/2014 - Hx Other Medical Back pain; Comm ents: APO 06/23/2014 - Disorder of thyroid Thyroid dise ase Hx Other Medical Headache, migra ine Family History Medical History Relation Name Comments Cancer Other 1 Family history of Cancer, unknown; Diabetes type II Other 2 Family hist ory of Diabetes mellitus type 2; Blood Clot Other 3 Family history of Blood clots; Coronary artery disease Other 4 Fami ly history of Coronary artery disease; Hypertension Other 5 Family history of Hypertension; Breast cancer Neg Hx Ovarian cancer Neg Hx Thyroid cancer Neg Hx Relation Name Status Comments Other 1 Other 2 Other 3 Other 4 Other 5 Social History Tobacco Use Types Packs/Day Years Used Date Smoking Tobacco: Never Smokeless Tobacco: Never Comments No Sex and Gender Information Value Date Recorded Sex Assigned at Not on file Legal Sex Female 3:05 PM SOFTWARE DESIGN MANAGER Gender Identity Not on file Sexual Orientation Not on file Obstetrics History Para Term AB IAB SAB Ectopic Multiple Livin g Live Births 3 3 3 Date Outcome GA Total Labor Labor/2nd/3rd Weight Sex Type Anes PTL Leigh A1 A5 Name Clin Term Term Term Last Filed Vital Signs Vital Sign Reading [...] cm (5' 5 ) 09/23/2022 8:05 AM SOFTWARE DESIGN MANAGER Body Mass Index 41.6 12/22/2017 5:20 PM CDT Plan of Treatment Health Maintenance Due Date Last Done Comments Colon Cancer Screening-Colonoscopy 1964 Depression Screening 1964 Hepatitis C Screening 1964 DTaP/Tdap/Td Vaccine (1 - Tdap) 1975 Hepatitis B Screening 1982 Regular Well Visit/Exam 18-64 1982 Zoster Vaccine (1 of 2) 2014 Breast Cancer Screening-Mammogram 09/24/2023 09/23/2022 Covid-19 Vaccine (3 - 2023-2 5 season) 2024 11/23/2020, 10/27/2020 Influenza Vaccine (#1) 2024 Pneumococcal vaccine <65 Aged Out No longer eligible based on patient's age to complete this topic Procedures Procedure Name Priority Date/Time Associated Diagnosis Comments SCREENING MAMMOGRAM BILATERAL W FAMILIA Schedule Routine, Read Routine (OP Routine) 09/23/2022 8:13 AM SOFTWARE DESIGN MANAGER Screening mammogram, encounter for from Last 3 Months or Most Recently Relevant to Health Maintenance Results * Screening Mammogram Bilateral W Familia (09/23/2022 8:13 AM SOFTWARE DESIGN MANAGER) Anatomical Region Laterality Modality Breast Bilateral Mammography 09/27/2022 1:39 PM SOFTWARE DESIGN MANAGER Impressions 09/27/2022 1:39 PM SOFTWARE DESIGN MANAGER There is no mammographic evidence of malignancy. A 1 year screening mammogram is recommended. BI-RADS: 1 - Negative. The patient has been or will be contacted. The patient will be entered into a reminder system with a target due date of 1 year for her next mammogram. Electronically signed by: MALKA Wooten 09/27/2022 1:39 PM SOFTWARE DESIGN MANAGER EXAMINATION: SCREENING MAMMOGRAM BILATERAL W FAMILIA ORDERING [...] either breast on mammogram. us Jesse Hobson COUNSELOR [facility]AMP IMG MAMMO PROCEDURES Final Result from Last 3 Months or Most Recently Relevant to Health Maintenance Insurance [employer] [facility] Care Teams Dietary Supervisor Relationship Specialty Start Date End Date Rowena Moser MD [address] [facility] [address] [place] [address] PCP - General Family Medicine 05/26/17
--- OUTSIDE RECORDS SUMMARY | 2024-11-02 16:40 | XMS_ITS | Clinical Summary ---
Author Organization [facility] Address [address] [place] [address] Phone Care Team Providers Care Clinical Phlebotomist Name Role Phone Rowena Moser MD Primary Care Provider [phone] Allergies Active Allergy Reactions Criticality Noted Date Comments Penicillins Other (see Comments) Low 01/26/2023 Gets bad yeast infections Medications levothyroxine (SYNTHROID) 150 MCG Tablet 3 Active liothyronine (CYTOMEL) 5 MCG Tablet 3 Active hydroCHLOROthia zide 25 MG Tablet Take 25 mg by mouth daily. 3 Active budesonide-form oterol fumarate (SYMBICORT) 160-4.5 MCG/ACT Aerosol Rinse mouth with water after use to reduce aftertaste and incidence of candidiasis. Do not swallow. Active omeprazole (PriLOSEC) 20 MG CAPSULE DELAYED RELEASE 3 Active montelukast (SINGULAIR) 10 MG Tablet TAKE 1 TABLET BY MOUTH ONCE DAILY AT BEDTIME 3 Active famotidine (PEPCID) 20 MG Tablet 3 Active Fluticasone Propionate (XHANCE NA) by Nasal route. Ac tive aspirin EC 81 MG Tablet Delayed Response Take 81 mg by mouth daily. Active Active Problems No known active problems Social History Tobacco Use Types Packs/Day Years Used Date Smoking Tobacco: Never Smokeless Tobacco: Never Comments No Sex and Gender Information Value Date Recorded Sex Assigned at Not on file Legal Sex Female 9:21 PM CDT Gender Identity Not on file Sexual Orientation Not on file Last Filed Vital Signs Vital Sign Reading Time Taken Comments Blood Pressure 124/62 01/26/2023 10:07 AM CDT Pulse 84 01/26/2023 10:07 AM CDT Temperature 36.6 C (97.9 F) 01/26/2023 10:07 AM CDT Respiratory Rate 20 01/26/2023 10:07 AM CDT Oxygen Saturation 94% 01/26/2023 10:07 AM CDT Inhaled Oxygen Concentration - - Weight - - Height - - Body Mass Index - - Plan of Treatment Health Maintenance Due Date Last Done Comments Hepatitis C Virus (HCV) Screening 1965 TdaP Immunization 1965 Colonoscopy 2009 Colorectal Cancer Screening 2009 Cologuard 2014 Immunochemical Fecal Occult Blood 2014 Pneumococcal Immunization (5 0+ years) (1 of 1 - PCV) 2014 Zoster Immunization (1 of 2) 2014 Mammogram 10/23/2018 10/23/2017 Influenza Immunization (#1) 2024 SARS-COV-2 Immunization ( season) 2024 11/23/2020, 10/27/2020 Respiratory Syncytial Virus (RSV) Immunization (Adult) (1 - 1-dose 75+ series) 2039 Hepatitis B Immunization Aged Out No longer eligible based on patient's age to complete this topic Meningococcal Immunization (ACWY) Aged Out No longer eligible b ased on patient's age to complete this topic Rotavirus Immunization Aged Out No lo nger eligible based on patient's age to complete this topic Procedures Procedure Name Priority Date/Time Associated Diagnosis Comments MARLENE SCREENING BILATERAL DIGITAL W CAD Routine 10/23/2017 6:48 AM CDT Encounter for screening mammogram for malignant neoplasm of breast from Last 3 Months or Most Recently Relevant to Health Maintenance Results * MARLENE SCREENING BILATERAL DIGITAL W CAD (10/23/2017 6:48 AM CDT) Anatomical Region Laterality Modality breast Bilateral Mammography 10/23/2017 6:21 AM CDT Narrative 10/23/2017 1:08 PM CDT - MARLENE SCREENING BILATERAL DIGITAL W CAD BILATERAL DIGITAL SCREENING MAMMOGRAM WITH CAD WITH MEDIOLATERAL OBLIQUE CRANIOCAUDAL: 10/23/2017 The study was acquired using digital technology and interpreted from soft copy. Current study was also evaluated with ICAD version 7.2. CLINICAL: Routine screening. Patient has no complaints. No personal history of cancer. No family history of breast cancer. Patient opted out of 3D imaging due to uncertainty of insurance coverage. COMPARISONS: Comparison is made to exams dated: 10/28/2014, 09/10/2012, and 12/05/2010 [facility]. BREAST TISSUE:There are scattered fibroglandular densities in both breasts. FINDINGS: No suspicious masses, calcifications, or other findings are seen in either breast. There has been no significant interval change. IMPRESSION: BI-RAD 1 NEGATIVE There is no mammographic evidence of malignancy. A 1 year screening mammogram is recommended. The patient has been or will be contacted. The patient will be entered into a reminder system with a target due date of 1 year for her next screening exam. Electronically signed by: Sloan Hughes M.D. mmd/:10/23/2017 09:06:30 Fourth Grade Teacher: Josefina Carmichael(Buck), [facility] letter sent: Normal Exam Reading location: [facility] BI-RADS: 1 Negative Procedure Note Sloan Hughes MD - 10/23/2017 - [facility] SCREENING BILATERAL DIGITAL W CAD BILATERAL DIGITAL SCREENING MAMMOGRAM WITH CAD WITH MEDIOLATERAL OBLIQUE CRANIOCAUDAL: 10/23/2017 The study was acquired using digital technology and interpreted from soft copy. Current study was also evaluated with ICAD version 7.2. CLINICAL: Routine screening. Patient has no complaints. No personal history of cancer. No family history of breast cancer. Patient opted out of 3D imaging due to uncertainty of insurance coverage. COMPARISONS: Comparison is made to exams dated: 10/28/2014, 09/10/2012, and 12/05/2010 [facility]. BREAST TISSUE:There are scattered fibroglandular densities in both breasts. FINDINGS: No suspicious masses, calcifications, or other findings are seen in either breast. There has been no significant interval change. IMPRESSION: BI-RAD 1 NEGATIVE There is no mammographic evidence of malignancy. A 1 year screening mammogram is recommended. The patient has been or will be contacted. The patient will be entered into a reminder system with a target due date of 1 year for her next screening exam. Electronically signed by: Sloan Hughes M.D. mmd/:10/23/2017 09:06:30 Fourth Grade Teacher: Josefina Carmichael(R), [facility] letter sent: Normal Exam Reading location: [facility] BI-RADS: 1 Negative us Rowena Moser MD IMG MAMMO ORDERABLES Final Result from Last 3 Months or Most Recently Relevant to Health Maintenance Insurance [facility] Care Teams Clinical Phlebotomist Relationship Specialty Start Date End Date Rowena Moser MD [address] [facility] [address] [place] [address] PCP - General Family Medicine 10/23/17
--- OUTSIDE RECORDS SUMMARY | 2024-11-02 16:40 | XMS_ITS | Clinical Summary ---
Author Organization [facility] Address [address] [phone] Phone Care Team Providers Care Opticianry Teacher Name Role Phone Unavailable Unavailable Unavailable Reason for Visit and Chief Complaint [Patient Encounter] Problems Includes: Problems addressed during this encounter and other active Problems All Visits Onset Date Resolved Date Provider Condition S tatus Asthma 09/22/2013 EVARISTO DOOLEY WHNP-BC Act chuck Last Documented On 4 9:16AM ; [facility] Postsurgical State 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 Maguire Endometrial Ablation 09/05/2010 EVARISTO DOOLEY W HNP-BC Active Last Documented On 1 12:32PM ; [facility] Note: [facility] - Dr. Maguire - --2007 Hypothyroidism 09/05/2010 EVARISTO DOOLEY WHNP-BC Active Last Documented On 1 9:06AM ; [facility] Oophorectomy - Unilateral (Removal of One Ovary) 09/05/2010 EVARISTO DOOLEY WHNP-BC Act chuck Last Documented On 09/05/2010 7:15AM ; [facility] Note: S/P left oophorectomy Plan of Treatment No Plan of Treatment Recorded Assessments Includes: Assessments from this encounter No Assessments Recorded Medical Equipment - Implanted Devices Includes: Current Devices No Medical Equipment Recorded Medications Includes: Medications discussed during this encounter and other current Medications Current Medications (continue as prescribed) Albutein 5% IV SOLN 09/23/2014 Provider: Diagnosis: Last Documented On 09/23/2014 9:16AM By CARISA EDOUARD ; [facility] Levothyroxine Sodium 125 MCG OR TABS 09/22/2013 Prov ider: Diagnosis: Last Documented On 09/22/2013 9:13AM By CARISA EDOUARD ; [facility] Potassium Citrate ER 10 MEQ (1080 MG) OR TBCR 09/23/19 14 Provider: Diagnosis: Last Documented On 09/22/2013 9:14AM By CARISA EDOUARD ; [facility] [id number]/4.5mg 160/4.5mg OR INHA 09/22/2013 Prov ider: Diagnosis: Last Documented On 09/22/2013 9:14AM By CARISA EDOUARD ; [facility] hydroCHLOROthiazide 25 MG TABS 09/09/2012 Provider: Diagnosis: Last Documented On 09/09/2012 10:55AM By RUBY EDOUARD ; [facility] Medications Administered Includes: Administered Medications from this encounter No Administered Medications Recorded Results Includes: Results discussed during this encounter No Results Recorded For Specified Dates History of Present Illness Includes: History of Present Illness from this encounter No History of Present Illness Recorded Social History No Social History Recorded - Smoking Status Unknown Medical History Includes: Medical History addressed during this encounter No Medical History Recorded Family History Includes: Family History addressed during this encounter No Family History Recorded Review of Systems Includes: Review of Systems from this encounter No Review of Systems Recorded Mental Status Includes: Mental Status from this encounter No Mental Status Recorded Functional Status Includes: Functional Status from this encounter No Functional Status Recorded Physical Exam Includes: Physical Exam from this encounter No Physical Exam Recorded Allergies Includes: Active Allergies Substance Type Reaction Onset Date Resolved Date Statu s Penicillins Allergy 08/07/2009 Active Last Documented On 5 9:15AM ; [facility] Encounters Encounter Provider Location Date Check-In Time Check- Out Time Diagnosis [Patient Encounter] EVARISTO DOOLEY [facility] [employer] MACHINE 4 10:43AM 11:59PM Clinical Notes Includes: Clinical Notes from this encounter No Clinical Notes Recorded
--- OUTSIDE RECORDS SUMMARY | 2024-11-02 16:40 | XMS_ITS | Clinical Summary ---
Author Organization [facility] Address [address] [place] [phone] Phone Care Team Providers Care Senior Patrol Agent Name Role Phone Unavailable Unavailable Unavailable Reason for Visit and Chief Complaint gynecologic annual exam - The Chief Complaint is: annual Problems Includes: Problems addressed during this encounter and other active Problems Current Visit Onset Date Resolved Date Provider Conditio n Status Asthma 09/22/2013 EVARISTO DOOLEY WHNP-BC Act chuck Last Documented On 4 9:16AM ; [facility] Past Visits Onset Date Resolved Date Provider Condition Status Postsurgical State 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 Maguire Endometrial Ablation 09/05/2010 EVARISTO DOOLEY WHNP-BC Active Last Documented On 09/05/2010 12:32PM ; [facility] Note: [facility] - Dr. Maguire - 16-2007 Hypothyroidism 09/05/2010 EVARISTO DOOLEY WHNP-BC Active Last Documented On 1 9:06AM ; [facility] Oophorectomy - Unilateral (Removal of One Ovary) 09/05/2010 EVARISTO DOOLEY WHNP-BC Act chuck Last Documented On 09/05/2010 7:15AM ; [facility] Note: S/P left oophorectomy Plan of Treatment - ABDMNAL PAIN LT LWR QUAD - Last Documented On 09/22/2013 9:27AM ; [facility] U/S @ [facility]/OB or JV U/S: PTVT US - Last Documented On 09/22/2013 9:27AM ; [facility] ? OTHERPHY ORDER/COMMENT 1 year/prn - Last Documented On 09/22/2013 9:27AM ; [facility] ? [facility]MAMMOGRAPHY: Mammography with u/s if indicated Instructions: Additional images/ultrasounds if indicated Please send to PCP - Last Documented On 09/22/2013 9:27AM ; [facility] ? SCREEN MAL NEOP-RECTUMIn office procedures/*Clia Waived Labs: *FIT Test (Fecal Occult Test) - Last Documented On 09/22/2013 9:27AM ; [facility] - Clinical summary provided to patient - Last Documented On 09/22/2013 9:27AM ; [facility] - Follow-up visit 1 year or as needed - Last Documented On 09/22/2013 9:27AM ; [facility] Per new ASCCP guidelines, pap was deferred today. This was d/w pt. and pt. is agreeable to this plan. - Last Documented On 09/22/2013 9:27AM ; [facility] Pending Tests Order Diagnosis Results Due Ordering P rovider U/S @ [facility] - OB or JV U/S PTVT US ABDMNAL PAIN LT LWR QUAD 09/22/13 EVARISTO DOOLEY NP-BC Last Documented On 4 12:45PM ; [facility] Radiology @ other - *MAMMOGRAPHY Mammography with u/s if indicated SCREEN MAMMOGRAM NEC 10/06/13 EVARISTO DOOLEY NP-BC Last Documented On 4 4:09PM ; [facility] In office procedures - *Clia Waived Labs *FIT Test (Fecal Occult Test) SCREEN MAL NEOP-RECTUM 10/06/13 EVARISTO DOOLEY WHNP-BC Last Documented On 4 9:14AM ; [facility] Instructions to patient Instructions for patient : B reast Self Exam discussed Last Documented On 4 9:04AM ; [facility] Lose weight Last Documented On 4 9:05AM ; [facility] Colonoscopy Handout given to patient Last Documented On 4 9:05AM ; [facility] Education and Decision Aids were provided during visit for: Patient Education: Daily giulia cium and vitamin D Last Documented On 4 9:04AM ; [facility] Patient Education: weight be aring exercise Last Documented On 4 9:04AM ; [facility] Assessments Includes: Assessments from this encounter Findings - NORMAL FEMALE EXAM - Last Documented On 09/22/2013 9:27AM ; [facility] - Screening Malig. Neoplasm Rectum - Last Documented On 09/22/2013 9:27AM ; [facility] Instructions Includes: Instructions from this encounter Instructions to patient Instructions for patient : B reast Self Exam discussed Last Documented On 4 9:04AM ; [facility] Lose weight Last Documented On 4 9:05AM ; [facility] Colonoscopy Handout given to patient Last Documented On 4 9:05AM ; [facility] Education and Decision Aids were provided during visit for: Patient Education: Daily giulia cium and vitamin D Last Documented On 4 9:04AM ; [facility] Patient Education: weight be aring exercise Last Documented On 4 9:04AM ; [facility] Medical Equipment - Implanted Devices Includes: Current Devices No Medical Equipment Recorded Medications Includes: Medications discussed during this encounter and other current Medications Discontinued / Stopped on this date on 09/05/2010 Synthroid 112 MCG OR TABS Provider: Diagnosis: Last Documented On 09/22/2013 9:13AM By CARISA EDOUARD ; [facility] Current Medications (continue as prescribed) Albutein 5% IV SOLN 09/23/2014 Provider: Diagnosis: Last Documented On 09/23/2014 9:16AM By CARISA EDOUARD ; [facility] Levothyroxine Sodium 125 MCG OR TABS 09/22/2013 Prov ider: Diagnosis: Last Documented On 09/22/2013 9:13AM By CARISA EDOUARD ; [facility] Potassium Citrate ER 10 MEQ (1080 MG) OR TBCR 09/23/19 14 Provider: Diagnosis: Last Documented On 09/22/2013 9:14AM By CARISA EDOUARD ; [facility] [id number]/4.5mg 160/4.5mg OR INHA 09/22/2013 Prov ider: Diagnosis: Last Documented On 09/22/2013 9:14AM By CARISA EDOUARD ; [facility] hydroCHLOROthiazide 25 MG TABS 09/09/2012 Provider: Diagnosis: Last Documented On 09/09/2012 10:55AM By RUBY EDOUARD ; [facility] Past Medications on file Ibuprofen 800 MG OR TABS 09/05/2010 - 10/05/2010 Provi faye: EVARISTO DOOLEY MAIA Diagnosis: for dysmenorrhea Last Documented On 1 9:25AM By EVARISTO DOOLEY JOHN PAUL ; [facility] Medications Administered Includes: Administered Medications from this encounter No Administered Medications Recorded Vital Signs Includes: Vital Signs from this encounter Vital Name 09/22/2013 09:04A Blood Pressure Sitting L 128/74 BP Cuff Size Large Height (in) 64.25 Weight (lb) 273 Body Mass Index (kg/m2) 46.5 Body Surface Area (m2) 2.2 Last Documented: On 09/22/2013 9:07AM ; [facility] Results Includes: Results discussed during this encounter SUREPATH PAP [facility] In c. Ordered by EVARISTO DOOLEY JOHN PAUL on 08/22 Collected: 09/09/2012 Reported: 09/14/19 13 15:32 Last Documented On 3 8:51AM ; [facility] Reviewed on 09/15/2012; All test results are final unless otherwise noted. SOURCE: See Note N (Normal) Last Documented On 09/15/2012 8:51AM ; [facility] Note: SEE NOTECervix, Endocervix CLINICAL INFORMATION: NA N (Normal) Last Documented On 3 8:51AM ; [facility] LMP: 5-23-11 N (Normal) Last Documented On 3 8:51AM ; [facility] PREV. PAP: 2-16-11 N (Normal) Last Documented On 3 8:51AM ; [facility] PREV. BX: N/A N (Normal) Last Documented On 3 8:51AM ; [facility] STATEMENT OF ADEQUACY: See Note N (Normal) Last Documented On 09/15/2012 8:51AM ; [facility] Note: SEE NOTESatisfactory for evaluation.Endocervical/transformation zone componentpresent. INTERPRETATION/RESULT: See Note N (Normal) Last Documented On 09/15/2012 8:51AM ; [facility] Note: SEE NOTENegative for intraepithelial lesion or malignancy. PROCESSING SPECIALIST: See Note N (Normal) Last Documented On 09/15/2012 8:51AM ; [facility] Note: SEE NOTEMLK, CT(ASCP) HPV DNA (HIGH RISK) [facility] In c. Ordered by EVARISTO DOOLEY [facility] on 08/22 Collected: 09/09/2012 Reported: 09/14/19 13 15:32 Last Documented On 3 8:51AM ; [facility] Reviewed on 09/15/2012; All test results are final unless otherwise noted. HPV DNA (HIGH RISK) NOT DETECTED (NOT DETECTED) N (Normal) Last Documented On 3 8:51AM ; [facility] Note: Tested for high risk types 16,18,31,33,35,39,45,51,52,56,58,59,68.The analytical performance characteristics of thisassay, when used to test SurePath or vaginal specimens,have been determined by Flare [facility].Methodology: Hybrid Capture with Signal Amplification. History of Present Illness Includes: History of Present Illness from this encounter HPI CRISTOBAL BARRETT is a 48 year old female. - Medication list reviewed with patient. Social History Description Last Updated Alcohol use OCC 09/22/2013 Last Documented On 4 9:27AM ; [facility] Caffeine use 09/22/2013 Last Documented On 4 9:27AM ; [facility] Daily cola consumption was one cans per day 09/22/2013 Last Documented On 4 9:27AM ; [facility] Daily tea consumption was one cups per d ay 09/22/2013 Last Documented On 4 9:27AM ; [facility] Educational level: grade 09/22/2013 Last Documented On 4 9:27AM ; [facility] In grade 13-16 (college) 09/22/2013 Last Documented On 4 9:27AM ; [facility] In monogamous relationship 09/22/2013 Last Documented On 4 9:27AM ; [facility] Marital history 09/22/2013 Last Documented On 4 9:27AM ; [facility] Non-smoker 09/22/2013 Last Documented On 4 9:27AM ; [facility] Not using drugs 09/22/2013 Last Documented On 4 9:27AM ; [facility] 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 Last Documented On 4 9:27AM ; [facility] Sikhism: Restorationism 09/22/2013 Last Documented On 4 9:27AM ; [facility] Lutheran affiliation 09/22/2013 Last Documented On 4 9:27AM ; [facility] Sexual history : painful intercourse 11/2013 Last Documented On 4 9:27AM ; [facility] Sexually active 09/22/2013 Last Documented On 4 9:27AM ; [facility] Sexually active with 1 partners in the l ast year 09/22/2013 Last Documented On 4 9:27AM ; [facility] Social history unchanged 09/22/2013 Last Documented On 4 9:27AM ; [facility] The racial background 09/22/2013 Last Documented On 4 9:27AM ; [facility] The racial background is 09/22 Last Documented On 4 9:27AM ; [facility] Smoking status : Never smoked 09/22/2013 Last Documented On 4 9:27AM ; [facility] Procedures and Surgical History Includes: Procedures from this encounter Procedures Code Diagnosis Performing Provider Service L ocation Service Date low fat diet Last Documented On 4 9:05AM ; [facility] a fecal occult blood test was negative 16751 Last Documented On 4 9:04AM ; [facility] normal history of Pap smear of cervix Last Documented On 4 9:11AM ; [facility] Surgical History Last Updated History of total abdominal hysterectomy 09/22/2013 Last Documented On 4 9:27AM ; [facility] History of hysterectomy 09/22/2013 Last Documented On 4 9:27AM ; [facility] History of tubal ligation 09/22/2013 Last Documented On 4 9:27AM ; [facility] Surgical / procedural history L oopherec janny ~[facility] 09/22/2013 Last Documented On 4 9:27AM ; [facility] Medical History Includes: Medical History addressed during this encounter Description Last Updated 3 living children 09/22/2013 Last Documented On 4 9:27AM ; [facility] Asthma 09/22/2013 Last Documented On 4 9:27AM ; [facility] 3 09/22/2013 Last Documented On 4 9:27AM ; [facility] History of asthma 09/22/2013 Last Documented On 4 9:27AM ; [facility] History of hypothyroidism 09/22/2013 Last Documented On 4 9:27AM ; [facility] LMP: 12/10/2010 09/22/2013 Last Documented On 4 9:27AM ; [facility] No recent change in medical history 11/2013 Last Documented On 4 9:27AM ; [facility] Not previously diagnosed with a STD 11/2013 Last Documented On 4 9:27AM ; [facility] Para 3 09/22/2013 Last Documented On 4 9:27AM ; [facility] Result: normal 09/22/2013 Last Documented On 4 9:27AM ; [facility] Result: normal 09/22/2013 Last Documented On 4 9:27AM ; [facility] Status post tubal ligation 09/22/2013 Last Documented On 4 9:27AM ; [facility] Vaginal delivery 09/22/2013 Last Documented On 4 9:27AM ; [facility] History of a screening mammogram was per formed 09/09/2012 09/22/2013 Last Documented On 4 9:27AM ; [facility] History of Pap smear done 09/09/201211/2013 Last Documented On 4 9:27AM ; [facility] LMP: 201009/22/2013 Last Documented On 4 9:27AM ; [facility] Family History Includes: Family History addressed during this encounter Description Last Updated Spouse name: Sajan 09/22/2013 Last Documented On 4 9:27AM ; [facility] Family history of diabetes mellitus pare nts 09/22/2013 Last Documented On 4 9:27AM ; [facility] Family history of heart disease pgm 11/2013 Last Documented On 4 9:27AM ; [facility] Family history of hypercholesterolemia f ather 09/22/2013 Last Documented On 4 9:27AM ; [facility] Family history unchanged 09/22/2013 Last Documented On 4 9:27AM ; [facility] Review of Systems Includes: Review of Systems from this encounter No Review of Systems Recorded Mental Status Includes: Mental Status from this encounter No Mental Status Recorded Functional Status Includes: Functional Status from this encounter No Functional Status Recorded Physical Exam Includes: Physical Exam from this encounter Allergies Includes: Active Allergies Substance Type Reaction Onset Date Resolved Date Statu s Penicillins Allergy 08/07/2009 Active Last Documented On 5 9:15AM ; [facility] Encounters Encounter Provider Location Date Check-In Time Check-Out Time Diagnosis ANNUAL ITINERANT TEACHER ASSISTANT EXAM EVARISTO DOOLEY [facility] AMORTIZATION SCHEDULE CLERK 09/23/19 14 8:55AM 9:28AM Screening Malig. Neoplasm Rectum,Normal Female Exam Clinical Notes Includes: Clinical Notes from this encounter No Clinical Notes Recorded
--- OUTSIDE RECORDS SUMMARY | 2024-11-02 16:41 | XMS_ITS | Clinical Summary ---
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 Maguire Endometrial Ablation 09/05/2010 EVARISTO DOOLEY W HNP-BC Active Last Documented On 1 12:32PM ; [facility] Note: [facility] - Dr. Maguire - 1-16-2007 Hypothyroidism 09/05/2010 EVARISTO DOOLEY WHNP-BC Active Last Documented On 1 9:06AM ; [facility] Oophorectomy - Unilateral (Removal of One Ovary) 09/05/2010 EVARISTO DOOLEY WHNP-BC Act chuck Last Documented On 09/05/2010 7:15AM ; [facility] Note: S/P left oophorectomy Plan of Treatment - OTHER - Last Documented On 09/09/2012 11:07AM ; [facility] Follow-up 1 year/prn - Last Documented On 09/09/2012 11:07AM ; [facility] ? SCREEN MAMMOGRAM [facility]/*MAMMOGRAPHY: Mammography Instructions: Additional images/ultrasounds if indicated Please send to PCP - Last Documented On 09/09/2012 11:07AM ; [facility] ? Cervical Pap SmearIn office procedures/*Clia Waived Labs: Pap Smear Taken - Last Documented On 09/09/2012 11:07AM ; [facility] ? SCREEN MAL NEOP-RECTUMIn office procedures/*Clia Waived Labs: *FIT Test (Fecal Occult Test) - Last Documented On 09/09/2012 11:07AM ; [facility] - Follow-up visit 1 year or as needed - Last Documented On 09/09/2012 11:07AM ; [facility] Pending Tests Order Diagnosis Results Due Ordering P rovider In office procedures - *[facility] *FIT Test (Fecal Occult Test) SCREEN MAL NEOP-RECTUM 09/23/12 EVARISTO DOOLEY NP-BC Last Documented On 3 10:49AM ; [facility] In office procedures - *[facility] Labs Pap Smear Taken SCREEN MAL NEOP-CERVIX 09/23/12 EVARISTO DOOLEY NP-BC Last Documented On 3 10:49AM ; [facility] Radiology @ other - *MAMMOGRAPHY Mammography SCREEN MAMMOGRAM NEC 09/23/12 EVARISTO SORENSEN NP-BC Last Documented On 3 11:11AM ; [facility] Lab SUREPATH PAP AND HR HPV DNA 10/09/12 EVARISTO DOOLEY NP-BC Last Documented On 3 11:21AM ; [facility] Instructions to patient Instructions for patient : B reast Self Exam discussed Last Documented On 3 10:48AM ; [facility] Lose weight Last Documented On 3 10:48AM ; [facility] Education and Decision Aids were provided during visit for: Patient Education: Daily giulia cium and vitamin D Last Documented On 3 10:48AM ; [facility] Patient Education: weight be aring exercise Last Documented On 3 10:48AM ; [facility] Assessments Includes: Assessments from this encounter Findings - NORMAL FEMALE EXAM - Last Documented On 09/09/2012 11:07AM ; [facility] - Screening Malig. Neoplasm Rectum - Last Documented On 09/09/2012 11:07AM ; [facility] Instructions Includes: Instructions from this encounter Instructions to patient Instructions for patient : B reast Self Exam discussed Last Documented On 3 10:48AM ; [facility] Lose weight Last Documented On 3 10:48AM ; [facility] Education and Decision Aids were provided during visit for: Patient Education: Daily giulia cium and vitamin D Last Documented On 3 10:48AM ; [facility] Patient Education: weight be aring exercise Last Documented On 3 10:48AM ; [facility] Medical Equipment - Implanted Devices Includes: Current Devices No Medical Equipment Recorded Medications Includes: Medications discussed during this encounter and other current Medications Current Medications (continue as prescribed) Albutein 5% IV SOLN 09/23/2014 Provider: Diagnosis: Last Documented On 09/23/2014 9:16AM By CARISA EDOUARD ; [facility] Levothyroxine Sodium 125 MCG OR TABS 09/22/2013 Prov ider: Diagnosis: Last Documented On 09/22/2013 9:13AM By CARISA EDOUARD ; [facility] Potassium Citrate ER 10 MEQ (1080 MG) OR TBCR 09/23/19 14 Provider: Diagnosis: Last Documented On 09/22/2013 9:14AM By CARISA EDUOARD ; [facility] [id number]/4.5mg 160/4.5mg OR INHA 09/22/2013 Prov ider: Diagnosis: Last Documented On 09/22/2013 9:14AM By CARISA EDOUARD ; [facility] hydroCHLOROthiazide 25 MG TABS 09/09/2012 Provider: Diagnosis: Last Documented On 09/09/2012 10:55AM By RUBY EDOUARD ; [facility] Past Medications on file Ibuprofen 800 MG OR TABS 09/05/2010 - 10/05/2010 Provi faye: [facility] Diagnosis: for dysmenorrhea Last Documented On 1 9:25AM By EVARISTO MEYER ; [facility] Medications Administered Includes: Administered Medications from this encounter No Administered Medications Recorded Vital Signs Includes: Vital Signs from this encounter Vital Name 09/09/2012 10:45A Blood Pressure Sitting L 120/88 BP Cuff Size Large Height (in) 63.75 Weight (lb) 276 Body Mass Index (kg/m2) 47.7 Body Surface Area (m2) 2.2 Last Documented: On 09/09/2012 10:51A M ; [facility] Results Includes: Results discussed during this encounter No Results Recorded For Specified Dates History of Present Illness Includes: History of Present Illness from this encounter No History of Present Illness Recorded Social History Description Last Updated Non-smoker 09/23/2014 Last Documented On 3 10:52AM ; [facility] Sexually active with 1 partners in the l ast year 09/23/2014 Last Documented On 3 10:52AM ; [facility] Social history unchanged 09/23/2014 Last Documented On 3 10:52AM ; [facility] Caffeine use 09/22/2013 Last Documented On 3 10:52AM ; [facility] Daily cola consumption was one cans per day 09/22/2013 Last Documented On 3 10:52AM ; [facility] Daily tea consumption was one cups per d ay 09/22/2013 Last Documented On 3 10:52AM ; [facility] Educational level: grade 09/22/2013 Last Documented On 3 10:52AM ; [facility] In grade 13-16 (college) 09/22/2013 Last Documented On 3 10:52AM ; [facility] Marital history 09/22/2013 Last Documented On 3 10:52AM ; [facility] 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 Last Documented On 3 10:52AM ; [facility] Confucianism: Worship 09/22/2013 Last Documented On 3 10:52AM ; [facility] Jewish affiliation 09/22/2013 Last Documented On 3 10:52AM ; [facility] Sexual history : painful intercourse 11/2013 Last Documented On 3 10:52AM ; [facility] Sexually active 09/22/2013 Last Documented On 3 10:52AM ; [facility] Alcohol use OCC 09/09/2012 Last Documented On 4 9:26AM ; [facility] Smoking Status Unknown Procedures and Surgical History Includes: Procedures from this encounter Procedures Code Diagnosis Performing Provider Service L ocation Service Date cervical Pap smear 01915 Last Documented On 3 10:48AM ; [facility] a fecal occult blood test was negative 53935 Last Documented On 3 10:48AM ; [facility] Surgical History Last Updated History of hysterectomy 09/22/2013 Last Documented On 3 10:52AM ; [facility] History of tubal ligation 09/22/2013 Last Documented On 3 10:52AM ; [facility] Surgical / procedural history L oopherec janny ~Novasure 09/22/2013 Last Documented On 3 10:52AM ; [facility] Medical History Includes: Medical History addressed during this encounter Description Last Updated History of asthma 09/23/2014 Last Documented On 3 10:52AM ; [facility] No recent change in medical history 12/2014 Last Documented On 3 10:52AM ; [facility] Result: normal 09/23/2014 Last Documented On 3 10:52AM ; [facility] Result: normal 09/23/2014 Last Documented On 3 10:52AM ; [facility] 3 living children 09/22/2013 Last Documented On 3 10:52AM ; [facility] Asthma 09/22/2013 Last Documented On 3 10:52AM ; [facility] 3 09/22/2013 Last Documented On 3 10:52AM ; [facility] History of hypothyroidism 09/22/2013 Last Documented On 3 10:52AM ; [facility] LMP: 12/10/2010 09/22/2013 Last Documented On 3 10:52AM ; [facility] Para 3 09/22/2013 Last Documented On 3 10:52AM ; [facility] Status post tubal ligation 09/22/2013 Last Documented On 3 10:52AM ; [facility] Vaginal delivery 09/22/2013 Last Documented On 3 10:52AM ; [facility] Last mammogram date: 12/05/2010 2 Last Documented On 3 10:52AM ; [facility] Last pap smear date 09/05/2010 11/13/2010 Last Documented On 3 10:52AM ; [facility] A Pap smear was performed 08/07/2009 Last Documented On 3 10:52AM ; [facility] Breast problems 08/07/2009 Last Documented On 3 10:52AM ; [facility] Family History Includes: Family History addressed during this encounter Description Last Updated Heart disease both Grandmothers 09/24/19 15 Last Documented On 3 10:52AM ; [facility] Spouse name: Sajan 09/22/2013 Last Documented On 3 10:52AM ; [facility] Family history of diabetes mellitus Pare nts and grandparents 09/22/2013 Last Documented On 3 10:52AM ; [facility] Family history of hypercholesterolemia M other 09/22/2013 Last Documented On 3 10:52AM ; [facility] Family history unchanged 09/22/2013 Last Documented On 3 10:52AM ; [facility] Family history of malignant neoplasm of the large intestine Paternal uncle 09/06/2011 Last Documented On 3 10:52AM ; [facility] Family history of uterine cancer materna l aunt 09/06/2011 Last Documented On 3 10:52AM ; [facility] Family history of hypertension PGM, PGF, father 09/05/2010 Last Documented On 3 10:52AM ; [facility] Family history of Cancer 08/07/2009 Last Documented On 3 10:52AM ; [facility] Family history of Diabetes 08/07/2009 Last Documented On 3 10:52AM ; [facility] Family medical history of High Cholester ol 08/07/2009 Last Documented On 3 10:52AM ; [facility] Review of Systems Includes: Review of Systems [...] Active Last Documented On 5 9:15AM ; [facility] Encounters Encounter Provider Location Date Check-In Time Check-Out Time Diagnosis ANNUAL DESKTOP SPECIALIST EXAM EVARISTO DOOLEY [facility] FABRIC WORKER LEADER 09/09/19 13 10:39AM 11:09AM Screening Malig. Neoplasm Rectum,Normal Female Exam Clinical Notes Includes: Clinical Notes from this encounter No Clinical Notes Recorded
--- OUTSIDE RECORDS SUMMARY | 2024-11-02 16:41 | XMS_ITS | Clinical Summary ---
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/O - 5-23-11 - Dr. Maguire Endometrial Ablation 09/05/2010 EVARISTO Simmons HNP-BC Active Last Documented On 1 12:32PM ; [facility] Note: [facility] - Dr. Maguire - -16-2007 Hypothyroidism 09/05/2010 EVARISTO DOOLEY WHNP-BC Active Last Documented On 1 9:06AM ; [facility] Oophorectomy - Unilateral (Removal of One Ovary) 09/05/2010 EVARISTO DOOLEY WHNP-BC Act chuck Last Documented On 09/05/2010 7:15AM ; [facility] Note: S/P left oophorectomy Plan of Treatment [...] On 09/23/2014 9:16AM By CARISA EDOUARD ; [facility] Levothyroxine Sodium 125 MCG OR TABS 09/22/2013 Prov ider: Diagnosis: Last Documented On 09/22/2013 9:13AM By CARISA EDOUARD ; [facility] Potassium Citrate ER 10 MEQ (1080 MG) OR TBCR 09/23/19 14 Provider: Diagnosis: Last Documented On 09/22/2013 9:14AM By CARISA EDOUARD ; [facility] [id number]/4.5mg 160/4.5mg OR INHA 09/22/2013 Prov ider: Diagnosis: Last Documented On 09/22/2013 9:14AM By CARISA EDOUARD ; [facility] hydroCHLOROthiazide 25 MG TABS 09/09/2012 Provider: Diagnosis: Last Documented On 09/09/2012 10:55AM By RUBY EDOUARD ; [facility] Medications Administered Includes: Administered Medications from this [...] Active Last Documented On 5 9:15AM ; [facility] Encounters Encounter Provider Location Date Check-In Time Check-Out Time Diagnosis PELVIC W/TVT EVARISTO DOOLEY [facility] INTERNAL SALESPERSON 4 12:28PM 12:59PM Clinical Notes Includes: Clinical Notes from this encounter No Clinical Notes Recorded
--- OUTSIDE RECORDS SUMMARY | 2024-11-02 16:41 | XMS_ITS ---
Care Plan - [facility] Created on: November 02, 2024 CRISTOBAL BARRETT : 1965 Sex: Female Author Organization [facility] Address [address] [place] [phone] Phone Care Team Providers Care Microelectronics Assembler Name Role Phone Unavailable Unavailable Unavailable
--- OUTSIDE RECORDS SUMMARY | 2024-11-02 16:41 | XMS_ITS | Clinical Summary ---
Author Organization [facility] Address [address] [place] [phone] Phone Care Team Providers Care Firer Kiln Name Role Phone Unavailable Unavailable Unavailable Reason for Referral Date Encounter Description Provider Reason for Referral 09/23/14 ANNUAL PROGRESS WORKER EXAM EVARISTO DOOLEY WHNP-BC Req uest Consultation By Specialist Reason for Visit and Chief Complaint gynecologic annual exam - The Chief Complaint is: Annual Problems Includes: Problems addressed during this encounter and other active Problems All Visits Onset Date Resolved Date Provider Condition S tatus Asthma 09/22/2013 EVARISTO DOOLEY WHNP-BC Act chuck Last Documented On 4 9:16AM ; [facility] Postsurgical State 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 Maguire Endometrial Ablation 09/05/2010 EVARISTO DOOLEY W HNP-BC Active Last Documented On 1 12:32PM ; [facility] Note: Winter - Dr. Maguire - 08-05-2007 Hypothyroidism 09/05/2010 EVARISTO DOOLEY WHNP-BC Active Last Documented On 1 9:06AM ; [facility] Oophorectomy - Unilateral (Removal of One Ovary) 09/05/2010 EVARISTO DOOLEY WHNP-BC Act chuck Last Documented On 09/05/2010 7:15AM ; [facility] Note: S/P left oophorectomy Plan of Treatment - Clinical summary provided to patient - Last Documented On 09/23/2014 9:31AM ; [facility] - Transition in care, clinical summary provided - Last Documented On 09/23/2014 9:31AM ; [facility] - Follow-up visit 1 year or as needed - Last Documented On 09/23/2014 9:31AM ; [facility] Referrals To Diagnosis Evidence Custodian COLBY CADENA MD SCREEN MAL NE OP-RECTUM Last Documented On 5 2:51PM ; [facility] Instructions to patient Instructions for patient : B reast Self Exam discussed Last Documented On 5 9:05AM ; [facility] Lose weight Last Documented On 5 9:06AM ; [facility] Colonoscopy Handout given to patient Last Documented On 5 9:06AM ; [facility] Education and Decision Aids were provided during visit for: Patient Education: Daily giulia cium and vitamin D Last Documented On 5 9:05AM ; [facility] Patient Education: weight be aring exercise Last Documented On 5 9:05AM ; [facility] Assessments Includes: Assessments from this encounter Findings - NORMAL FEMALE EXAM - Last Documented On 09/23/2014 9:31AM ; [facility] - Screening Malig. Neoplasm Rectum - Last Documented On 09/23/2014 9:31AM ; [facility] Instructions Includes: Instructions from this encounter Instructions to patient Instructions for patient : B reast Self Exam discussed Last Documented On 5 9:05AM ; [facility] Lose weight Last Documented On 5 9:06AM ; [facility] Colonoscopy Handout given to patient Last Documented On 5 9:06AM ; [facility] Education and Decision Aids were provided during visit for: Patient Education: Daily giulia cium and vitamin D Last Documented On 5 9:05AM ; [facility] Patient Education: weight be aring exercise Last Documented On 5 9:05AM ; [facility] Medical Equipment - Implanted Devices Includes: Current Devices No Medical Equipment Recorded Medications Includes: Medications discussed during this encounter and other current Medications Discontinued / Stopped on this date on 09/22/2013 Advair HFA 230-21 MCG/ACT IN AERO Provide r: Diagnosis: Last Documented On 09/23/2014 9:16AM By CARISA EDOUARD ; [facility] Current Medications (continue as prescribed) Albutein 5% IV SOLN 09/23/2014 Provider: Diagnosis: Last Documented On 09/23/2014 9:16AM By CARISA EDOUARD ; [facility] Levothyroxine Sodium 125 MCG OR TABS 09/22/2013 Prov ider: Diagnosis: Last Documented On 09/22/2013 9:13AM By CARISA EDOUARD ; [facility] Potassium Citrate ER 10 MEQ (1080 MG) OR TBCR 09/23/19 14 Provider: Diagnosis: Last Documented On 09/22/2013 9:14AM By CARISA EDOUARD ; [facility] klbanmhrl035/4.5mg 160/4.5mg OR INHA 09/22/2013 Prov ider: Diagnosis: Last Documented On 09/22/2013 9:14AM By CARISA EDOUARD ; [facility] hydroCHLOROthiazide 25 MG TABS 09/09/2012 Provider: Diagnosis: Last Documented On 09/09/2012 10:55AM By RUBY EDOUARD ; [facility] Past Medications on file Ibuprofen 800 MG OR TABS 09/05/2010 - 10/05/2010 Provi faye: EVARISTO RIVAS Diagnosis: for dysmenorrhea Last Documented On 1 9:25AM By EVARISTO MEYER ; [facility] Medications Administered Includes: Administered Medications from this encounter No Administered Medications Recorded Vital Signs Includes: Vital Signs from this encounter Vital Name 09/23/2014 09:10A Blood Pressure Sitting L 140/78 BP Cuff Size Large Height (in) 64 Weight (lb) 274 Body Mass Index (kg/m2) 47.0 Body Surface Area (m2) 2.2 Last Documented: On 09/23/2014 9:31AM ; [facility] Results Includes: Results discussed during this encounter No Results Recorded For Specified Dates History of Present Illness Includes: History of Present Illness from this encounter ALEXIS BARRETT is a 49 year old female. - Medication list reviewed. Social History Description Last Updated Alcohol use occ 09/23/2014 Last Documented On 5 9:31AM ; [facility] In monogamous relationship 09/23/2014 Last Documented On 5 9:31AM ; [facility] Non-smoker 09/23/2014 Last Documented On 5 9:31AM ; [facility] Not using drugs 09/23/2014 Last Documented On 5 9:31AM ; [facility] Sexually active with 1 partners in the l ast year 09/23/2014 Last Documented On 5 9:31AM ; [facility] Social history unchanged 09/23/2014 Last Documented On 5 9:31AM ; [facility] Smoking status : Never smoker 09/23/2014 Last Documented On 5 9:31AM ; [facility] The racial background 09/23/2014 Last Documented On 5 9:31AM ; [facility] The racial background is 09/23 Last Documented On 5 9:31AM ; [facility] Church: Gnosticist 09/22/2013 Last Documented On 5 9:05AM ; [facility] Jewish affiliation 09/22/2013 Last Documented On 5 9:05AM ; [facility] Procedures and Surgical History Includes: Procedures from this encounter Procedures Code Diagnosis Performing Provider Service L ocation Service Date low fat diet Last Documented On 5 9:06AM ; [facility] consultation with a specialist Last Documented On 5 9:15AM ; [facility] Referred to: Mary - GI - screening col onoscopy Last Documented On 5 9:15AM ; [facility] a fecal occult blood test was negative [id number] Last Documented On 5 9:05AM ; [facility] normal history of Pap smear of cervix Last Documented On 5 9:14AM ; [facility] Surgical History Last Updated History of total abdominal hysterectomy 09/22/2013 Last Documented On 5 9:05AM ; [facility] History of hysterectomy 09/22/2013 Last Documented On 5 9:05AM ; [facility] History of tubal ligation 09/22/2013 Last Documented On 5 9:05AM ; [facility] Surgical / procedural history L oopherec janny ~Novasure 09/22/2013 Last Documented On 5 9:05AM ; [facility] Medical History Includes: Medical History addressed during this encounter Description Last Updated History of asthma 09/23/2014 Last Documented On 5 9:31AM ; [facility] No recent change in medical history 12/2014 Last Documented On 5 9:31AM ; [facility] History of a DEXA of the lateral lumbar spine was performed never had one 09/23/2014 Last Documented On 5 9:31AM ; [facility] History of complete colonoscopy never salguero d one 09/23/2014 Last Documented On 5 9:31AM ; [facility] Sexually active 09/23/2014 Last Documented On 5 9:31AM ; [facility] History of a screening mammogram was per formed 09/09/2012 09/23/2014 Last Documented On 5 9:31AM ; [facility] History of Pap smear done 09/09/201212/2014 Last Documented On 5 9:31AM ; [facility] Result: normal 09/23/2014 Last Documented On 5 9:31AM ; [facility] Result: normal 09/23/2014 Last Documented On 5 9:31AM ; [facility] 3 living children 09/22/2013 Last Documented On 5 9:05AM ; [facility] Asthma 09/22/2013 Last Documented On 5 9:05AM ; [facility] 3 09/22/2013 Last Documented On 5 9:05AM ; [facility] History of hypothyroidism 09/22/2013 Last Documented On 5 9:05AM ; [facility] LMP: 12/10/2010 09/22/2013 Last Documented On 5 9:05AM ; [facility] Para 3 09/22/2013 Last Documented On 5 9:05AM ; [facility] Status post tubal ligation 09/22/2013 Last Documented On 5 9:05AM ; [facility] Vaginal delivery 09/22/2013 Last Documented On 5 9:05AM ; [facility] Family History Includes: Family History addressed during this encounter Description Last Updated Family history of heart disease pgm,mgm, mother 09/23/2014 Last Documented On 5 9:31AM ; [facility] Family history of malignant female breas t neoplasm pgm 09/23/2014 Last Documented On 5 9:31AM ; [facility] Spouse name: Sajan 09/22/2013 Last Documented On 5 9:05AM ; [facility] Family history of diabetes mellitus pare nts 09/22/2013 Last Documented On 5 9:05AM ; [facility] Family history of hypercholesterolemia f ather 09/22/2013 Last Documented On 5 9:05AM ; [facility] Family history unchanged 09/22/2013 Last Documented On 5 9:05AM ; [facility] Family history of malignant neoplasm of the large intestine Paternal uncle 09/06/2011 Last Documented On 5 9:05AM ; [facility] Family history of uterine cancer materna l aunt 09/06/2011 Last Documented On 5 9:05AM ; [facility] Family history of hypertension PGM, PGF, father 09/05/2010 Last Documented On 5 9:05AM ; [facility] Family history of Cancer 08/07/2009 Last Documented On 5 9:05AM ; [facility] Family history of Diabetes 08/07/2009 Last Documented On 5 9:05AM ; [facility] Family medical history of High Cholester ol 08/07/2009 Last Documented On 5 9:05AM ; [facility] Review of Systems Includes: Review of Systems from this encounter Genitourinary: No pelvic pain. Vaginal pain during intercourse and vaginal dryness. No vaginal discharge. 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 Neoplasm Rectum,Normal Female Exam Clinical Notes Includes: Clinical Notes from this encounter No Clinical Notes Recorded
== END 2024-11-02 15:45 | disposition home or self-care (01) ==
PROVIDERS: PCP Family Medicine; Visit Provider Physician Assistant
DX: R06.00 Dyspnea, unspecified (principal)
CPT/HCPCS: 71046

== ENCOUNTER 2025-01-04 14:21 | Emergency (ER) | payer OTHER, SELFPAY ==
[2025-01-04 14:32] VITALS: BP 140/75; PULSE 76; RESP 20; TEMP 36.8; O2SAT 97
--- NOTE | 2025-01-04 14:48 | ED_ITS ---
HPI - URI/Sore Throat General Chief Complaint: Upper Respiratory Infection Stated Complaint: Cough/Sinus Problem/Asthma Time Seen by Provider: 01/04/25 14:25 Source: patient Mode of arrival: ambulatory Limitations: no limitations History of Present Illness HPI Narrative: Patient is a 59-year-old female who presents clinic with complaints of nasal congestion, cough, and an asthma flare up with shortness of breath with exertion x 7 days. She states that she has been using her inhaler and Singular, with minimal relief. Denies having any fevers, nausea, vomiting, diarrhea, or difficulty swallowing. Related Data Home Medications ?Medication ?Instructions ?Recorded ?Confirmed ?Last Taken ?Type aspirin 81 mg chewable tablet 81 mg PO DAILY 09/14/21 11/18/24 03/30/24 History fluticasone propionate 93 1 spray intranasal Q12H PRN Sinuses 03/12/24 11/18/24 03/30/24 History mcg/actuation breath activated aerosol (Xhance) Allergies Allergy/AdvReac Type Severity Reaction Status Date / Time Penicillins Allergy Mild yeast Verified 11/18/24 09:04 infection, rash Review of Systems Review of Systems: CONSTITUTIONAL: Denies body aches, fever, chills, or sweats. EYES: Denies visual changes, redness, or discharge. ENT: Reports congestion. Denies sore throat, or otalgia. CARDIOVASCULAR: Denies chest pain, palpitations, or edema. RESPIRATORY: Reports cough and dyspnea with exertion. GASTROINTESTINAL: Denies abdominal pain, nausea, vomiting, or diarrhea. GENITOURINARY: Denies dysuria or hematuria. SKIN: Denies rash, itching, or wounds. MUSCULOSKELETAL: Denies back pain, joint pain, or myalgia. NEUROLOGIC: Denies headache, numbness, tingling, or weakness. PSYCH: Denies depression or anxiety. All systems reviewed & are unremarkable except as noted in HPI and below PMFSH Past Medical History Medical History Facial pressure Hair loss Cough Chronic cough Intermittent asthma with acute exacerbation Post-operative pain Facial pain Thrush Leukocytosis Screening for breast cancer Screening mammogram for breast cancer Hypokalemia Laryngopharyngeal reflux Chronic sinusitis of both maxillary sinuses Chronic ethmoidal sinusitis Acute sinusitis Nasal crusting PND (post-nasal drip) Acute rhinosinusitis Acute maxillary sinusitis Obesity Hyperglycemia GERD (gastroesophageal reflux disease) Chronic sinusitis Allergic asthma Hypothyroidism, unspecified Low vitamin D level Mixed hyperlipidemia Morbid (severe) obesity due to excess calories Surgical History Surgical History History of hysterectomy Family History Family History Father Hypertension Family history of elevated blood lipids Family history of diabetes mellitus in first degree relative Mother Hypertension Family history of elevated blood lipids Family history of diabetes mellitus in first degree relative Grandparent Family history of lung cancer Social History Social History Social History: Smoking status: Never smoker Second hand tobacco smoke exposure: No Alcohol intake: never Substance use: never Substance use type: does not use Do You Feel Safe in your Home?: Yes Lack of Transportation: No Lack of Food: Never True Current Housing: I Have Housing Concerned About Future Housing: No Difficulty Paying Gas/Electric Bills: No Difficulty Paying for Meds: No Currently Unemployed: YES Education: Trade/Vocational Certificate Difficulty w/ Childcare or Family Care: No Living arrangements: with family Occupation/Education: occupation 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 Please see nursing chart for further information. There is no relevant family history pertinent to the presenting complaint. Exam Narrative: GENERAL: Well-appearing, well-nourished, and in no acute distress. EYES: EOMI. No redness or drainage. Conjunctivae normal. ENT: Mucous membranes pink and moist. Nares clear. No rhinorrhea. TMs normal bilaterally. No Throat Erythema or tonsillar exudate, uvula midline. Nasal congestion noted. NECK: Normal AROM. Supple. No lymphadenopathy. CHEST: No respiratory distress. Wheezing noted to upper and lower left lobes, clear otherwise. HEART: Regular rate and rhythm. No murmur appreciated. Normal peripheral pulses. ABDOMEN: Soft, nontender, nondistended, normal active bowel sounds. SKIN: Warm, dry, no rash. Capillary refill normal. Normal skin turgor. NEURO: No focal deficits. Alert and oriented x3. Gait steady. PSYCH: Normal affect. No signs of depression or anxiety. Course Course Level of Care: Express Care Visit Vital Signs Vital signs: Vital Signs Temperature 98.2 F 01/04/25 14:32 Pulse Rate 76 01/04/25 14:32 Respiratory Rate 20 01/04/25 14:32 Blood Pressure 140/75 01/04/25 14:32 Pulse Oximetry 97 01/04/25 14:32 Oxygen Delivery Room Air 01/04/25 14:32 Temperature 98.2 F 01/04/25 14:32 Pulse Rate 76 01/04/25 14:32 Respiratory Rate 20 01/04/25 14:32 Blood Pressure 140/75 01/04/25 14:32 Pulse Oximetry 97 01/04/25 14:32 Oxygen Delivery Room Air 01/04/25 14:32 Reviewed. MDM - URI/Sore Throat MDM Narrative Medical decision making narrative: Discussed physical exam findings. Steroid and Antibiotic prescription given. Advised supportive measures and signs/symptoms to go to the ER. Pt is appropriate for outpt treatment and follow up. Differential Diagnosis Differential diagnosis: Likely upper respiratory infection, sinusitis, viral infection, bronchitis and other (asthma exacerbation) Critical Care Time Critical Care Time Critical Care Time: No Discharge Plan Discharge Clinical Impression: Sinusitis Qualifiers: Sinusitis location: frontal Chronicity: acute Recurrence: non-recurrent Qualified Code(s): J01.10 - Acute frontal sinusitis, unspecified Patient Disposition: Home Condition: Stable Instructions: Upper Respiratory Infection (ED) Additional Instructions: Take antibiotic as prescribed. Take steroid as prescribed. Recommend Flonase spray and Zyrtec (or Claritin/April) Tylenol 1000mg every 8 hours as needed for pain Symptomatic treatment includes: rest, fluids, and increase humidity of the air at home. Follow up with your primary care provider in 1 week. Go to the ER for worsening symptoms or concerns. Patient Language: Sami Prescriptions: New prednisone 20 mg tablet 40 mg PO DAILY 5 Days Qty: 10 0RF azithromycin [Zithromax Z-Monty] 250 mg tablet See Rx Instructions PO .COMPLEX Qty: 6 0RF Rx Instructions: For 250 mg dose pack: take 500 mg today (day 1), then 250 mg for 4 days (days 2-5) No Action Symbicort 160-4.5 mcg/actuation HFA aerosol inhaler 2 puff INHALATION Q12H Qty: 10.2 0RF albuterol sulfate [Ventolin HFA] 90 mcg/actuation HFA aerosol inhaler 2 puff INHALATION Q4H PRN (Reason: shortness of breath or wheezing) Qty: 8.5 2RF Xhance 93 mcg/actuation aerosol breath activated 1 spray intranasal Q12H PRN (Reason: Sinuses) Rx Instructions: into each nostril aspirin 81 mg Tablet,Chewable 81 mg PO DAILY montelukast 10 mg tablet See Rx Instructions .ROUTE .COMPLEX Qty: 90 1RF Dose Instruction: TAKE 1 TABLET BY MOUTH ONCE DAILY AT BEDTIME Rx Instructions: TAKE 1 TABLET BY MOUTH ONCE DAILY AT BEDTIME famotidine 20 mg tablet 20 mg PO HS Qty: 60 0RF Rx Instructions: Alternating between omeprazole liothyronine 5 mcg tablet See Rx Instructions .ROUTE .COMPLEX Qty: 90 0RF Dose Instruction: Take 1 tablet by mouth once daily Rx Instructions: Take 1 tablet by mouth once daily levothyroxine 150 mcg tablet See Rx Instructions .ROUTE .COMPLEX Qty: 90 1RF Dose Instruction: Take 1 tablet by mouth once daily Rx Instructions: Take 1 tablet by mouth once daily hydrochlorothiazide 25 mg tablet See Rx Instructions .ROUTE .COMPLEX Qty: 90 0RF Dose Instruction: Take 1 tablet by mouth once daily Rx Instructions: Take 1 tablet by mouth once daily Wegovy 2.4 mg/0.75 mL pen injector See Rx Instructions .ROUTE .COMPLEX Qty: 4 5RF Dose Instruction: INJECT 2.4 MG (0.75 ML) SUBCUTANEOUSLY ONCE A WEEK Rx Instructions: INJECT 2.4 MG (0.75 ML) SUBCUTANEOUSLY ONCE A WEEK omeprazole 20 mg capsule,delayed release(DR/EC) See Rx Instructions .ROUTE .COMPLEX Qty: 90 1RF Dose Instruction: Take 1 capsule by mouth once daily Rx Instructions: Take 1 capsule by mouth once daily Follow-up/Referrals: UNKNOWN,DOCTOR [Primary Care Provider] - Time of Disposition: 15:06
--- OUTSIDE RECORDS SUMMARY | 2025-01-04 15:14 | XMS_ITS | Clinical Summary ---
Author Organization [facility] Address [address] [place] [address] Phone Care Team Providers Care Inspector Water Pollution Control Name Role Phone Rowena Moser MD Primary Care Provider [phone] Allergies Active Allergy Reactions Criticality Noted Date [...] Virus (HCV) Screening 1964 TdaP Immunization 1964 Cologuard 2009 Colonoscopy 2009 Colorectal Cancer Screening 2009 Immunochemical Fecal Occult Blood 2009 Pneumococcal Immunization (5 0+ years) (1 of 1 - PCV) 2014 Zoster Immunization (1 of 2) 2014 Mammogram 10/23/2018 10/23/2017 SARS-COV-2 Immunization ( season) 2024 11/23/2020, 10/27/2020 Influenza Immunization (Seas on Ended) 2025 Respiratory Syncytial Virus (RSV) Immunization (Adult) (1 - 1-dose 75+ series) 2039 Hepatitis B Immunization Aged Out No longer eligible based on patient's age to complete this topic Human Papillomavirus (HPV) Immunization Aged Out No longer eligible b ased [...] to exams dated: 10/28/2014, 09/10/2012, and 12/05/2010 [facility]. BREAST TISSUE:There are scattered fibroglandular densities [...] signed by: Sloan Hughes M.D. mmd/:10/23/2017 09:06:30 Practice Specialist: Josefina Carmichael(Buck), [facility] letter sent: Normal Exam Reading location: [facility] BI-RADS: 1 Negative Procedure Note Sloan Hughes MD - 10/23/2017 - MARLENE SCREENING BILATERAL DIGITAL W CAD [...] to exams dated: 10/28/2014, 09/10/2012, and 12/05/2010 [facility]. BREAST TISSUE:There are scattered fibroglandular densities [...] signed by: Sloan Hughes M.D. mmd/:10/23/2017 09:06:30 Practice Specialist: Josefina Carmichael(Buck), [facility] letter sent: Normal Exam Reading location: [facility] BI-RADS: 1 Negative Rowena Moser MD IMG MAMMO ORDERABLES Final Result from Last 3 Months or Most Recently Relevant to Health Maintenance Insurance [facility] Care Teams Inspector Water Pollution Control Relationship Specialty Start Date End Date Rowena Moser MD [address] [place] [id number] PCP - General Family Medicine 10/23/17
--- OUTSIDE RECORDS SUMMARY | 2025-01-04 15:15 | XMS_ITS | Patient Health Record ---
Author Organization [facility] Address [address] [place]. [address] [place] [id number] Care Team Providers Care Insurance Follow Up Representative Name Role Phone Ramo Powers DC Primary Care Provider Jonathan Gutierrez Unavailable [phone] Allergies Allergen (clinical drug ingredient) Drug/Non Drug Allergy documented on EMR Reaction Allergy Type Onset Date Status Penicillins Unknown Drug Allergy Activ e Reason For Referral No Information Medications Medication SIG (Take, Route, Fr equency, Duration) Notes Start Date End Date Status OTC/Vitamins Active Symbicort Active Neomycin Sulfate 500 MG 1 tablets Orally TWICE A DAY for 10 day(s) 05/13/2016 Active Benzonatate Active hydroCHLOROthiazide Active Levothyroxine Sodium Active Social History Tobacco Use: Social History Observation Description Date Details (start date - stop date) Never Smoker NA - NA Tobacco Use/Smoking Question Answer Notes Are you a nonsmoker Problems Problem Type SNOMED Code ICD Code Onset Dates Problem Status W/U Status Risk Notes Problem 547460727 Colon cancer screening (Z12.11) Active confirmed Problem 19180964 Abdominal gas pain (R14.1) Active confirmed Problem 15985334 Abdominal tenderness (R10.819) Active confirmed Plan Of Treatment Pending Test Test Name Order Date SIBO Breath Test 04/30/2016 SIBO Breath Test 05/07/2016 Insurance Providers Payer Name Payer Address Payer Phone Subscriber Number Group Number Insured Name Patient Relationship to Insured Coverage Start Date Coverage End Date Blue Access PPO E2 [address] [place] [address] [id number] Michelle Barrett Self - patient is the insured Medical (General) History Medical History History ICD Code Thyoid Disorder Asthma Fluid Retention Diverticulosis/Diverticulitis Surgical History Surgery Date(Month/Year) Tubal Ligation Ovary Removal Hysterectomy
--- OUTSIDE RECORDS SUMMARY | 2025-01-04 15:15 | XMS_ITS | Referral Summary ---
Author Organization [address] Address [address] [place] [phone] Care Team Providers Care Hair Spring Cutter Name Role Phone Rowena Moser MD Primary [...] on file Legal Sex Female 3:05 PM ANIMAL CRUELTY INVESTIGATOR Gender Identity Not on file Sexual Orientation [...] 5:20 PM CDT Height 165.1 cm (5' 5) 09/23/2022 8:05 AM ANIMAL CRUELTY INVESTIGATOR Body Mass Index 41.6 12/22/2017 5:20 PM CDT Plan of Treatment Not on file Procedures Procedure Name Priority Date/Time Associated Diagnosis Comments SCREENING MAMMOGRAM BILATERAL W FAMILIA Schedule Routine, Read Routine (OP Routine) 09/23/2022 8:13 AM ANIMAL CRUELTY INVESTIGATOR Screening mammogram, encounter for from Last 3 Months or Most Recently Relevant to Health Maintenance Results * Screening Mammogram Bilateral W Familia (09/23/2022 8:13 AM ANIMAL CRUELTY INVESTIGATOR) Anatomical Region Laterality Modality Breast Bilateral Mammography 09/27/2022 1:39 PM ANIMAL CRUELTY INVESTIGATOR Impressions 09/27/2022 1:39 PM ANIMAL CRUELTY INVESTIGATOR There is no mammographic evidence of malignancy. A 1 year screening mammogram is recommended. BI-RADS: 1 - Negative. The patient has been or will be contacted. The patient will be entered into a reminder system with a target due date of 1 year for her next mammogram. Electronically signed by: MALKA Wooten 09/27/2022 1:39 PM ANIMAL CRUELTY INVESTIGATOR EXAMINATION: SCREENING MAMMOGRAM BILATERAL W FAMILIA ORDERING [...] either breast on mammogram. us Jesse Hobson AS400 DEVELOPER IMG MAMMO PROCEDURES Final Result from Last 3 Months or Most Recently Relevant to Health Maintenance [place] [address] [place] [address] [place] [place] [address] Care Teams Hair Spring Cutter Relationship Specialty Start Date End Date Rowena Moser MD [address] [facility] [address] [place] [address] PCP - General Family Medicine 05/26/17
--- OUTSIDE RECORDS SUMMARY | 2025-01-04 15:15 | XMS_ITS | Clinical Summary ---
Author Organization [address] Address [address] [place] [phone] Care Team Providers Care Dry Cans Back Tender Name Role Phone Rowena Moser MD Primary [...] on file Legal Sex Female 3:05 PM DOUGHNUT BATTER MIXER Gender Identity Not on file Sexual Orientation [...] 165.1 cm (5' 5) 09/23/2022 8:05 AM DOUGHNUT BATTER MIXER Body Mass Index 41.6 12/22/2017 5:20 PM [...] 5 season) 2024 11/23/2020, 10/27/2020 Influenza Vaccine (Season Ended) 2025 Pneumococcal vaccine <65 Aged Out No longer eligible based on patient's age to complete this topic Procedures Procedure Name Priority Date/Time Associated Diagnosis Comments SCREENING MAMMOGRAM BILATERAL W FAMILIA Schedule Routine, Read Routine (OP Routine) 09/23/2022 8:13 AM DOUGHNUT BATTER MIXER Screening mammogram, encounter for from Last 3 Months or Most Recently Relevant to Health Maintenance Results * Screening Mammogram Bilateral W Familia (09/23/2022 8:13 AM DOUGHNUT BATTER MIXER) Anatomical Region Laterality Modality Breast Bilateral Mammography 09/27/2022 1:39 PM DOUGHNUT BATTER MIXER Impressions 09/27/2022 1:39 PM DOUGHNUT BATTER MIXER There is no mammographic evidence of malignancy. A 1 year screening mammogram is recommended. BI-RADS: 1 - Negative. The patient has been or will be contacted. The patient will be entered into a reminder system with a target due date of 1 year for her next mammogram. Electronically signed by: MALKA Wooten 09/27/2022 1:39 PM DOUGHNUT BATTER MIXER EXAMINATION: SCREENING MAMMOGRAM BILATERAL W FAMILIA ORDERING [...] either breast on mammogram. us Jesse Hobson DISHROOM ATTENDANT IMG MAMMO PROCEDURES Final Result from Last 3 Months or Most Recently Relevant to Health Maintenance Insurance [place] [facility] Care Teams Dry Cans Back Tender Relationship Specialty Start Date End Date Rowena Moser MD [address] [facility] [address] [place] [address] PCP - General Family Medicine 05/26/17
== END 2025-01-04 15:20 | disposition home or self-care (01) ==
DX: J01.10 Acute frontal sinusitis, unspecified (principal); K21.9 Gastro-esophageal reflux disease without esophagitis; E03.9 Hypothyroidism, unspecified; E78.2 Mixed hyperlipidemia; E66.01 Morbid (severe) obesity due to excess calories; Z68.42 Body mass index [BMI] 45.0-49.9, adult; Z79.82 Long term (current) use of aspirin
CPT/HCPCS: 99213; G0463